=== PATIENT | male | born 1945 | race Two or more races ===

== ENCOUNTER 2020-05-31 00:28 | Inpatient (IN) | payer MEDICARE, OTHER ==
[~2020-05-31] VITALS: Ht 188 cm; Wt 93.4 kg
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
--- NOTE | 2020-05-31 00:55 | NUR ---
urine collected and sent to the lab.
[2020-05-31 01:05] LABS: BILIRUBIN,URINE NEGATIVE (NEGATIVE); COLOR,URINE YELLOW (YELLOW); LEUKOCYTE ESTERASE ,URINE NEGATIVE (NEGATIVE); NITRITE, URINE NEGATIVE (NEGATIVE); PH,URINE 5.5 (5.0-8.0); PROTEIN,URINE NEGATIVE (NEGATIVE); UGLUCOSE NEGATIVE (NEGATIVE); UROBILINOGEN,URINE 0.2 EU/dL (0.2)
--- NOTE | 2020-05-31 01:11 | NUR ---
214-B IS THE ROOM PER NURSING SUPEVISOR.
[2020-05-31 01:12] LABS: BASOPHILS # (AUTO) 0.1 /CMM (0.0-0.2); BASOPHILS % (AUTO) 1.2 % (0.0-2.0); EOSINOPHILS % (AUTO) 1.1 % (0.0-6.0); HEMATOCRIT 42 % (39-51); HEMOGLOBIN 14.5 g/dL (13.5-17.5); LYMPHOCYTES # (AUTO) 2.3 /CMM (0.8-4.8); LYMPHOCYTES % (AUTO) 20.9 % (20.0-44.0); MEAN CORPUSCULAR HGB CONC 34 g/dl (31.0-36.0); MEAN CORPUSCULAR VOLUME 89 fL (80-96); MONOCYTES # (AUTO) 0.8 /CMM (0.1-1.30); MONOCYTES % (AUTO) 7.6 % (2.0-12.0); NEUTROPHILS # (AUTO) 7.5 /CMM (1.8-8.9); NEUTROPHILS % (AUTO) 69.2 % (43.0-81.0); PLATELET COUNT (AUTO) 193 /CMM (150-450); RED BLOOD CELL COUNT(AUTO) 4.77 MIL/uL (4.5-6.0); WHITE BLOOD COUNT (AUTO) 10.9 K/uL (4.3-11.0)
[2020-05-31 01:28] LABS: CALCIUM, SERUM 9.1 mg/dL (8.5-10.1); CARBON DIOXIDE 28 mmol/L (21-32); CHLORIDE 101 mmol/L (98-107); CREATININE 0.7 mg/dL (0.6-1.3); GLUCOSE 134 mg/dL (74-106); POTASSIUM 4.1 mmol/L (3.5-5.1); SODIUM SERUM 136 mmol/L (136-145); UREA NITROGEN, BLOOD 15 mg/dL (7-18)
--- NOTE | 2020-05-31 01:34 | NUR ---
CALL FROM LAB. RAPID COVID NEGATIVE.
[2020-05-31 01:35] LABS: ALANINE AMINOTRANSFERASE 24 U/L (12-78); ALCOHOL, BLOOD < 3 mg/dL (0-0); ALKALINE PHOSPHATASE 77 U/L (46-116); ASPARTATE AMINOTRANSFERASE 14 U/L (15-37); BILIRUBIN,DIRECT 0.1 mg/dL (0.0-0.2); BILIRUBIN,TOTAL 0.3 mg/dL (0.2-1.0); TOTAL PROTEIN, SERUM 7.6 g/dL (6.4-8.2)
[2020-05-31 01:39] LABS: ACETAMINOPHEN 0 ug/ml (10-30)
--- NOTE | 2020-05-31 01:49 | NUR ---
REPORT GIVEN TO CARINA CUNNINGHAM FOR HELEN.
--- NOTE | 2020-05-31 02:08 | NUR ---
patient is taken to assigned room for HELEN
[2020-05-31] MEDS ORDERED: ACETAMINOPHEN 325 MG TABLET PO PRN (02:30)
[2020-05-31] MEDS ORDERED: LORAZEPAM 0.5 MG TABLET PO PRN (02:30)
[2020-05-31] MEDS ORDERED: BLOOD SUGAR DIAGNOSTIC 1 EACH STRIP IN ONE (02:30)
[2020-05-31] MEDS ORDERED: MAGNESIUM HYDROXIDE 30 ML UDC PO PRN (02:30)
[2020-05-31] MEDS ORDERED: MAG HYDROX/AL HYDROX/SIMETH 30 ML UDC PO PRN (02:30)
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
--- NOTE | 2020-05-31 02:59 | NUR ---
RN NOTE PATIENT'S BLOOD SUGAR IS 93 MG/DL. ORANGE JUICE GIVEN & TOLERATED WELL. WILL CONTINUE TO MONITOR THE PATIENT.
[2020-05-31] MEDS ORDERED: Z GUARD REMEDY 4 OZ OINT TP PRN (04:30)
[2020-05-31] MEDS ORDERED: DOCU-141 PO (04:40)
[2020-05-31] MEDS ORDERED: FOLI1CAP7 PO (04:40)
[2020-05-31] MEDS ORDERED: CYAN250014 PO (04:40)
[2020-05-31] MEDS ORDERED: ATOR40TA PO (04:40)
[2020-05-31] MEDS ORDERED: LISI10TA29 PO (04:40)
[2020-05-31] MEDS ORDERED: GABA600T12 PO (04:40)
[2020-05-31] MEDS ORDERED: MELA3TAB41 PO (04:40)
[2020-05-31] MEDS ORDERED: DILT180C66 PO (04:40)
[2020-05-31] MEDS ORDERED: RIVA10TA PO (04:40)
[2020-05-31] MEDS ORDERED: ATEN50TA PO (04:40)
[2020-05-31] MEDS ORDERED: INSU100V7 SQ (04:40)
[2020-05-31] MEDS ORDERED: TAMS-12 PO (04:40)
[2020-05-31] MEDS ORDERED: FAMO20TA8 PO (04:40)
[2020-05-31] MEDS ORDERED: INSU100C10 SQ (04:40)
[2020-05-31] MEDS ORDERED: MULT-447 PO (04:40)
[2020-05-31] MEDS ORDERED: QUET50TA PO (04:40)
--- NOTE | 2020-05-31 05:38 | NUR ---
RN NOTE MEDS ENTERED TO RECONCILE & TAMIKO NOTIFIED TO DO MED RECON.
[2020-05-31] MEDS ORDERED: DEXTROSE 50%-WATER 50 ML DISP.SYRIN IV PRN (06:30)
--- NOTE | 2020-05-31 07:15 | NUR ---
RN NOTE MED RECON DONE, INFORMED AM RN & CHARGE NURSE TO NOTIFY FAMILY REGARDING ADMISSION.
[2020-05-31] MEDS: BLOOD SUGAR DIAGNOSTIC 1 EACH STRIP IN SCH ×4 (07:27→22:01)
[2020-05-31 07:44] LABS: CREATININE 0.9 mg/dL (0.6-1.3)
[2020-05-31 08:00] VITALS: BP 152/78
--- NOTE | 2020-05-31 08:00 | NUR ---
GPS WORKFORCE MANAGEMENT ANALYST: NOTES LEFT MESSAGE TO NOREEN (PUBLIC GUARDIAN) VIA ANSWERING MACHINE RE: ADMISSION.
[2020-05-31] MEDS: DILTIAZEM HCL CD 180 MG PO SCH (08:50)
[2020-05-31] MEDS: ATENOLOL 50 MG TABLET PO SCH ×2 (08:50→16:38)
[2020-05-31] MEDS: MULTIVITAMINS,THERAGRAN 1 UDTAB TABLET PO SCH (08:51)
[2020-05-31] MEDS: Z GUARD REMEDY 2 OZ OINT TP SCH (08:51)
[2020-05-31] MEDS: VIT B CMPLX 3/FA/VIT C/BIOTIN 1 TAB TABLET PO SCH (08:51)
[2020-05-31] MEDS: CYANOCOBALAMIN 500 MCG TABLET PO SCH (08:51)
[2020-05-31] MEDS: LISINOPRIL (10MG) 10 MG TABLET PO SCH (08:51)
[2020-05-31] MEDS: FAMOTIDINE (20 MG) 20 MG TABLET PO SCH ×2 (08:51→17:03)
[2020-05-31] MEDS: DOCUSATE SODIUM 100 MG CAPSULE PO SCH ×2 (08:51→17:03)
[2020-05-31] MEDS: INSULIN REGULAR, HUMAN 100 UNIT/ML 3 ML VIAL SQ PRN ×2 (11:23→17:04)
[2020-05-31] MEDS: OLANZAPINE 2.5 MG TABLET PO SCH ×2 (13:15→17:03)
[2020-05-31 16:00] VITALS: BP 92/53
[2020-05-31] MEDS: ATORVASTATIN 40 MG TABLET PO SCH (17:10)
[2020-05-31 20:13] VITALS: BP 100/61
[2020-05-31] MEDS ORDERED: GABAPENTIN 300 MG CAPSULE PO SCH (22:00)
[2020-05-31] MEDS: INSULIN GLARGINE, 100 UNIT/ML CARTRIDGE SQ SCH (22:00)
[2020-05-31] MEDS: RIVAROXABAN 10 MG TABLET PO SCH (22:01)
[2020-05-31] MEDS: DIVALPROEX SODIUM 250 MG TABLET.DR PO SCH (22:02)
[2020-05-31] MEDS: TAMSULOSIN 0.4 MG CAP.SR.24H PO SCH (22:02)
--- NOTE | 2020-05-31 22:15 | NUR ---
gpa rn did not administer lantus 20 units d/t patient blood sugar is 97. will continue to monitor.
[2020-06-01 07:20] LABS: ALBUMIN 2.9 g/dL (3.4-5.0); BILIRUBIN,TOTAL 0.4 mg/dL (0.2-1.0); CALCIUM, SERUM 8.8 mg/dL (8.5-10.1); CREATININE 0.7 mg/dL (0.6-1.3); POTASSIUM 3.8 mmol/L (3.5-5.1); TOTAL PROTEIN, SERUM 7.2 g/dL (6.4-8.2)
[2020-06-01] MEDS: BLOOD SUGAR DIAGNOSTIC 1 EACH STRIP IN SCH ×4 (07:59→22:26)
[2020-06-01 08:00] VITALS: BP 121/55
[2020-06-01] MEDS: DILTIAZEM HCL CD 180 MG PO SCH (09:26)
[2020-06-01] MEDS: MULTIVITAMINS,THERAGRAN 1 UDTAB TABLET PO SCH (09:27)
[2020-06-01] MEDS: OLANZAPINE 2.5 MG TABLET PO SCH ×3 (09:27→18:29)
[2020-06-01] MEDS: CYANOCOBALAMIN 500 MCG TABLET PO SCH (09:27)
[2020-06-01] MEDS: DOCUSATE SODIUM 100 MG CAPSULE PO SCH ×2 (09:27→18:29)
[2020-06-01] MEDS: VIT B CMPLX 3/FA/VIT C/BIOTIN 1 TAB TABLET PO SCH (09:27)
[2020-06-01] MEDS: FAMOTIDINE (20 MG) 20 MG TABLET PO SCH ×2 (09:27→18:29)
[2020-06-01] MEDS: Z GUARD REMEDY 2 OZ OINT TP SCH (09:47)
--- NOTE | 2020-06-01 09:51 | NUR ---
WOUND CARE CONSULT: PT PRESENTS WITH SCABS TO LOWER LEGS AND FEET, ANKLES, PRESENT ON ADMISSION. RECOMMEND DPM CONSULT. DR RODRIGUEZ NOTIFIED OF CONSULT REQUEST. MD IN AGREEMENT WITH PLAN OF CARE.
[2020-06-01] MEDS: LISINOPRIL (10MG) 10 MG TABLET PO SCH (10:04)
[2020-06-01] MEDS: ATENOLOL 50 MG TABLET PO SCH ×2 (10:04→17:00)
[2020-06-01] MEDS ORDERED: PERMETHRIN 59 ML BOTTLE TP ONE (11:00)
[2020-06-01] MEDS ORDERED: PERMETHRIN 5% CRM 60 GM TUBE TP ONE (11:00)
[2020-06-01] MEDS: INSULIN REGULAR, HUMAN 100 UNIT/ML 3 ML VIAL SQ PRN (12:42)
[2020-06-01 16:00] VITALS: BP 105/62
[2020-06-01] MEDS: ENSURE ENLIVE CHOC 237 ML CAN PO SCH (17:34)
--- NOTE | 2020-06-01 18:00 | NUR ---
ELIMITE AND NIX TX GIVEN.WD NURSE HERE EARLY AND SUSPICIOUS OF SCABIES.Irina JEONG NOTIFIED AND MED ORDERS PUT IN FOR SKIN TX.TO BE REMOVED TOMORROW.
[2020-06-01] MEDS: CLOTRIMAZOLE 1% 15 GM TUBE TP SCH (18:30)
[2020-06-01] MEDS: ATORVASTATIN 40 MG TABLET PO SCH (18:30)
[2020-06-01 20:46] VITALS: BP 108/61
[2020-06-01] MEDS: TAMSULOSIN 0.4 MG CAP.SR.24H PO SCH (21:47)
[2020-06-01] MEDS: DIVALPROEX SODIUM 250 MG TABLET.DR PO SCH (21:47)
[2020-06-01] MEDS: RIVAROXABAN 10 MG TABLET PO SCH (21:49)
[2020-06-01] MEDS: INSULIN GLARGINE, 100 UNIT/ML CARTRIDGE SQ SCH (22:00)
[2020-06-02] MEDS: BLOOD SUGAR DIAGNOSTIC 1 EACH STRIP IN SCH ×4 (07:37→21:28)
[2020-06-02 08:00] VITALS: BP 101/50
[2020-06-02] MEDS: MULTIVITAMINS,THERAGRAN 1 UDTAB TABLET PO SCH (08:23)
[2020-06-02] MEDS: FAMOTIDINE (20 MG) 20 MG TABLET PO SCH ×2 (08:23→16:26)
[2020-06-02] MEDS: VIT B CMPLX 3/FA/VIT C/BIOTIN 1 TAB TABLET PO SCH (08:24)
[2020-06-02] MEDS: DOCUSATE SODIUM 100 MG CAPSULE PO SCH ×2 (08:24→16:26)
[2020-06-02] MEDS: CYANOCOBALAMIN 500 MCG TABLET PO SCH (08:24)
[2020-06-02] MEDS: DILTIAZEM HCL CD 180 MG PO SCH ×2 (08:24→08:42)
[2020-06-02] MEDS: OLANZAPINE 2.5 MG TABLET PO SCH ×3 (08:24→16:26)
[2020-06-02] MEDS: ATENOLOL 50 MG TABLET PO SCH ×3 (08:25→16:27)
[2020-06-02] MEDS: LISINOPRIL (10MG) 10 MG TABLET PO SCH ×2 (08:25→08:43)
[2020-06-02] MEDS: ENSURE ENLIVE CHOC 237 ML CAN PO SCH ×2 (08:34→17:19)
[2020-06-02] MEDS: CLOTRIMAZOLE 1% 15 GM TUBE TP SCH ×2 (10:16→16:36)
[2020-06-02] MEDS: Z GUARD REMEDY 2 OZ OINT TP SCH (10:17)
--- NOTE | 2020-06-02 13:30 | NUR ---
Keyur MELVIN) in the unit and notified that BP meds not given due low BP.
[2020-06-02 16:00] VITALS: BP 116/66
[2020-06-02] MEDS: ATORVASTATIN 40 MG TABLET PO SCH (17:29)
[2020-06-02 20:06] VITALS: BP 121/66
[2020-06-02] MEDS: TAMSULOSIN 0.4 MG CAP.SR.24H PO SCH (21:19)
[2020-06-02] MEDS: DIVALPROEX SODIUM 250 MG TABLET.DR PO SCH (21:20)
[2020-06-02] MEDS: RIVAROXABAN 10 MG TABLET PO SCH (21:32)
[2020-06-02] MEDS: INSULIN GLARGINE, 100 UNIT/ML CARTRIDGE SQ SCH (21:33)
[2020-06-02] MEDS: INSULIN REGULAR, HUMAN 100 UNIT/ML 3 ML VIAL SQ PRN (21:42)
[2020-06-03 08:00] VITALS: BP 112/56
[2020-06-03] MEDS: BLOOD SUGAR DIAGNOSTIC 1 EACH STRIP IN SCH ×4 (08:26→21:16)
[2020-06-03] MEDS: MULTIVITAMINS,THERAGRAN 1 UDTAB TABLET PO SCH (08:27)
[2020-06-03] MEDS: CYANOCOBALAMIN 500 MCG TABLET PO SCH (08:27)
[2020-06-03] MEDS: DOCUSATE SODIUM 100 MG CAPSULE PO SCH ×2 (08:27→17:18)
[2020-06-03] MEDS: VIT B CMPLX 3/FA/VIT C/BIOTIN 1 TAB TABLET PO SCH (08:27)
[2020-06-03] MEDS: FAMOTIDINE (20 MG) 20 MG TABLET PO SCH ×2 (08:27→16:34)
[2020-06-03] MEDS: OLANZAPINE 2.5 MG TABLET PO SCH ×3 (08:27→16:34)
[2020-06-03] MEDS: Z GUARD REMEDY 2 OZ OINT TP SCH (08:29)
[2020-06-03] MEDS: LISINOPRIL (10MG) 10 MG TABLET PO SCH (08:29)
[2020-06-03] MEDS: ATENOLOL 50 MG TABLET PO SCH ×2 (08:29→16:35)
[2020-06-03] MEDS: ENSURE ENLIVE CHOC 237 ML CAN PO SCH ×2 (08:35→17:15)
[2020-06-03] MEDS: DILTIAZEM HCL CD 180 MG PO SCH (08:37)
[2020-06-03] MEDS: CLOTRIMAZOLE 1% 15 GM TUBE TP SCH ×2 (08:39→16:40)
--- NOTE | 2020-06-03 11:10 | NUR ---
Phone Call: SW attempted to call next of kin (Public Guardian-Symone Dueañsmanny [phone] and [phone]) via phone regarding the pt and discharge planning. SW left a voice message to return phone call at rn social work office ([phone]). Plan: Farm Management Supervisor will follow up as needed.
--- NOTE | 2020-06-03 11:15 | NUR ---
Phone Call: SW spoke to Water Plant Maintenance Mechanic (Gzkavgw-[phone], [facility], [address] [place] [address],) regarding the pt and discharge planning. The windchill administrator would take the pt back but suggest to find another placement if possible.
[2020-06-03 12:12] LABS: BASOPHILS # (AUTO) 0.1 /CMM (0.0-0.2); BASOPHILS % (AUTO) 0.7 % (0.0-2.0); EOSINOPHILS % (AUTO) 1.1 % (0.0-6.0); HEMATOCRIT 45 % (39-51); HEMOGLOBIN 15.1 g/dL (13.5-17.5); LYMPHOCYTES # (AUTO) 2.1 /CMM (0.8-4.8); MEAN CORPUSCULAR HGB CONC 34 g/dl (31.0-36.0); MEAN CORPUSCULAR VOLUME 89 fL (80-96); MONOCYTES # (AUTO) 0.8 /CMM (0.1-1.30); NEUTROPHILS % (AUTO) 69.2 % (43.0-81.0); PLATELET COUNT (AUTO) 197 /CMM (150-450); RED BLOOD CELL COUNT(AUTO) 5.02 MIL/uL (4.5-6.0)
[2020-06-03 12:20] LABS: CALCIUM, SERUM 9.4 mg/dL (8.5-10.1); CREATININE 0.7 mg/dL (0.6-1.3); POTASSIUM 4.4 mmol/L (3.5-5.1)
[2020-06-03 12:27] LABS: ALBUMIN 3.1 g/dL (3.4-5.0); BILIRUBIN,TOTAL 0.4 mg/dL (0.2-1.0); TOTAL PROTEIN, SERUM 7.7 g/dL (6.4-8.2)
--- NOTE | 2020-06-03 12:31 | NUR ---
Initial Discharge Plan: Pt currently resides at [facility], [address] [place] [address] .) The facility has agreed to accept the pt back to the facility. SW will discharge back to current living. JOSIE will work with the pt, guardian (Symone Hammer- [phone]), and MD for appropriate discharged planning. SW will form a safe and proper discharge plan.
[2020-06-03 16:00] VITALS: BP 123/81
[2020-06-03] MEDS: ATORVASTATIN 40 MG TABLET PO SCH (17:15)
[2020-06-03 20:21] VITALS: BP 139/78
[2020-06-03] MEDS: RIVAROXABAN 10 MG TABLET PO SCH (21:17)
[2020-06-03] MEDS: TAMSULOSIN 0.4 MG CAP.SR.24H PO SCH (21:17)
[2020-06-03] MEDS: INSULIN REGULAR, HUMAN 100 UNIT/ML 3 ML VIAL SQ PRN (21:18)
[2020-06-03] MEDS: INSULIN GLARGINE, 100 UNIT/ML CARTRIDGE SQ SCH (21:19)
[2020-06-03] MEDS: DIVALPROEX SODIUM 250 MG TABLET.DR PO SCH (21:21)
[2020-06-04] MEDS: BLOOD SUGAR DIAGNOSTIC 1 EACH STRIP IN SCH ×4 (07:59→21:17)
[2020-06-04] MEDS: ENSURE ENLIVE CHOC 237 ML CAN PO SCH ×2 (07:59→17:27)
[2020-06-04 08:00] VITALS: BP 125/72
[2020-06-04] MEDS: DILTIAZEM HCL CD 180 MG PO SCH (09:17)
[2020-06-04] MEDS: MULTIVITAMINS,THERAGRAN 1 UDTAB TABLET PO SCH (09:17)
[2020-06-04] MEDS: OLANZAPINE 2.5 MG TABLET PO SCH ×3 (09:18→16:36)
[2020-06-04] MEDS: FAMOTIDINE (20 MG) 20 MG TABLET PO SCH ×2 (09:18→16:37)
[2020-06-04] MEDS: VIT B CMPLX 3/FA/VIT C/BIOTIN 1 TAB TABLET PO SCH (09:18)
[2020-06-04] MEDS: LISINOPRIL (10MG) 10 MG TABLET PO SCH (09:18)
[2020-06-04] MEDS: DOCUSATE SODIUM 100 MG CAPSULE PO SCH ×2 (09:18→16:36)
[2020-06-04] MEDS: ATENOLOL 50 MG TABLET PO SCH ×2 (09:18→16:36)
[2020-06-04] MEDS: CYANOCOBALAMIN 500 MCG TABLET PO SCH (09:18)
[2020-06-04] MEDS: CLOTRIMAZOLE 1% 15 GM TUBE TP SCH ×2 (09:50→16:40)
[2020-06-04] MEDS: Z GUARD REMEDY 2 OZ OINT TP SCH (09:51)
[2020-06-04] MEDS: INSULIN REGULAR, HUMAN 100 UNIT/ML 3 ML VIAL SQ PRN ×2 (11:58→17:30)
[2020-06-04 16:00] VITALS: BP 116/65
[2020-06-04] MEDS: ATORVASTATIN 40 MG TABLET PO SCH (17:24)
[2020-06-04 20:05] VITALS: BP 112/82
[2020-06-04] MEDS: TAMSULOSIN 0.4 MG CAP.SR.24H PO SCH (21:17)
[2020-06-04] MEDS: DIVALPROEX SODIUM 250 MG TABLET.DR PO SCH (21:17)
[2020-06-04] MEDS: RIVAROXABAN 10 MG TABLET PO SCH (21:20)
[2020-06-04] MEDS: INSULIN GLARGINE, 100 UNIT/ML CARTRIDGE SQ SCH (21:38)
[2020-06-05] MEDS: BLOOD SUGAR DIAGNOSTIC 1 EACH STRIP IN SCH ×4 (07:30→22:14)
--- NOTE | 2020-06-05 07:48 | NUR ---
RN NOTES PATIENT REFUSED ACCU CHECK PULLING HANDS AWAY
[2020-06-05 08:00] VITALS: BP 110/57
[2020-06-05] MEDS: ENSURE ENLIVE CHOC 237 ML CAN PO SCH ×2 (08:55→17:18)
[2020-06-05] MEDS: FAMOTIDINE (20 MG) 20 MG TABLET PO SCH ×2 (09:08→17:10)
[2020-06-05] MEDS: DOCUSATE SODIUM 100 MG CAPSULE PO SCH ×2 (09:08→17:10)
[2020-06-05] MEDS: DILTIAZEM HCL CD 180 MG PO SCH (09:08)
[2020-06-05] MEDS: CYANOCOBALAMIN 500 MCG TABLET PO SCH (09:08)
[2020-06-05] MEDS: MULTIVITAMINS,THERAGRAN 1 UDTAB TABLET PO SCH (09:08)
[2020-06-05] MEDS: OLANZAPINE 2.5 MG TABLET PO SCH ×3 (09:09→17:16)
[2020-06-05] MEDS: LISINOPRIL (10MG) 10 MG TABLET PO SCH (09:09)
[2020-06-05] MEDS: VIT B CMPLX 3/FA/VIT C/BIOTIN 1 TAB TABLET PO SCH (09:09)
[2020-06-05] MEDS: ATENOLOL 50 MG TABLET PO SCH ×2 (09:09→17:00)
[2020-06-05] MEDS: CLOTRIMAZOLE 1% 15 GM TUBE TP SCH ×2 (09:10→17:18)
[2020-06-05] MEDS: Z GUARD REMEDY 2 OZ OINT TP SCH (09:10)
[2020-06-05 16:00] VITALS: BP 104/52
[2020-06-05] MEDS: ATORVASTATIN 40 MG TABLET PO SCH (17:10)
[2020-06-05] MEDS: INSULIN REGULAR, HUMAN 100 UNIT/ML 3 ML VIAL SQ PRN ×2 (17:20→22:17)
[2020-06-05 20:53] VITALS: BP 112/55
[2020-06-05] MEDS: TAMSULOSIN 0.4 MG CAP.SR.24H PO SCH (22:06)
[2020-06-05] MEDS: DIVALPROEX SODIUM 250 MG TABLET.DR PO SCH (22:06)
[2020-06-05] MEDS: RIVAROXABAN 10 MG TABLET PO SCH (22:07)
[2020-06-05] MEDS: INSULIN GLARGINE, 100 UNIT/ML CARTRIDGE SQ SCH (22:11)
[2020-06-06] MEDS: TEMAZEPAM 7.5 MG CAPSULE PO PRN ×2 (03:38→23:40)
--- NOTE | 2020-06-06 03:39 | NUR ---
Pt c/o insomnia. Least restrictive measures ineffective.. Restoril 7.5 mg given as ordered. Will continue to monitor.
--- NOTE | 2020-06-06 04:45 | NUR ---
Post 1 hr Restoril effective. Pt asleep in bed easy to arouse. Will continue to monitor.
--- NOTE | 2020-06-06 07:10 | NUR ---
GPS RN OPENING NOTES RECEIVED PATIENT RESTING COMFORTABLE IN BED AT THIS TIME.AOX1-2. NO SOB NOTED. NO S/S OF ANY APPARENT DISTRESS NOTED.BREATHING UNLABORED. PT DENIES SI/HI. PT REMAINS CALM, RELAXED AND COOPERATIVE. BED IN LOWEST LOCKED POSITION, HOB ELEVATED, SIDE RAILS UPX2, CALL LIGHT AND TABLE WITHIN REACH. WILL CONTINUE TO MONITOR Q 15 MIN FOR SAFETY, MOOD & BEHAVIOR
[2020-06-06 08:00] VITALS: BP 121/62
--- NOTE | 2020-06-06 08:00 | NUR ---
PT NOTED ON THE FLOOR RIGHT AFTER BED ALARM STARTS RINGING. PT ASSESSED, NEURO CHECK DONE, PT ALERT ORIENTED, SKIN INTACT, VS WNL. PT STATED "I TRIED GETTING OUT OF BED AND FELL ON MY BOTTUCK". NGUYEN INGRAM MADE AWARE, XR PELVIS, XR LEFT AND RIGHT HIP ORDERED. WILL CONTINUE TO MONITOR Addendum: 06/06/20 at 1133 by ROZ BLUM RN PT NOTED ON THE FLOOR RIGHT AFTER BED ALARM STARTS RINGING. PT ASSESSED, NEURO CHECK DONE, PT ALERT ORIENTED, SKIN INTACT, VS WNL. PT STATED "I TRIED GETTING OUT OF BED AND FELL ON MY BUTTOCK". NGUYEN INGRAM MADE AWARE, BRITTA, CHARGE NURSE, DR LUEVANO AND NURSING CORK INSULATOR HELPER AWARE. XR PELVIS, XR LEFT AND RIGHT HIP ORDERED. WILL CONTINUE TO MONITOR
[2020-06-06] MEDS: BLOOD SUGAR DIAGNOSTIC 1 EACH STRIP IN SCH ×4 (08:03→21:41)
[2020-06-06] MEDS: ENSURE ENLIVE CHOC 237 ML CAN PO SCH ×2 (08:03→17:12)
[2020-06-06] MEDS: CLOTRIMAZOLE 1% 15 GM TUBE TP SCH ×2 (09:00→17:33)
[2020-06-06] MEDS: Z GUARD REMEDY 2 OZ OINT TP SCH (09:48)
[2020-06-06] MEDS: VIT B CMPLX 3/FA/VIT C/BIOTIN 1 TAB TABLET PO SCH (09:48)
[2020-06-06] MEDS: DOCUSATE SODIUM 100 MG CAPSULE PO SCH ×2 (09:48→17:33)
[2020-06-06] MEDS: DILTIAZEM HCL CD 180 MG PO SCH (09:48)
[2020-06-06] MEDS: FAMOTIDINE (20 MG) 20 MG TABLET PO SCH ×2 (09:48→17:33)
[2020-06-06] MEDS: MULTIVITAMINS,THERAGRAN 1 UDTAB TABLET PO SCH (09:49)
[2020-06-06] MEDS: LISINOPRIL (10MG) 10 MG TABLET PO SCH (09:49)
[2020-06-06] MEDS: CYANOCOBALAMIN 500 MCG TABLET PO SCH (09:49)
[2020-06-06] MEDS: ATENOLOL 50 MG TABLET PO SCH ×2 (09:50→17:32)
[2020-06-06] MEDS: OLANZAPINE 2.5 MG TABLET PO SCH ×4 (09:50→21:41)
[2020-06-06] MEDS: INSULIN REGULAR, HUMAN 100 UNIT/ML 3 ML VIAL SQ PRN ×3 (09:57→17:24)
[2020-06-06 11:12] LABS: BASOPHILS # (AUTO) 0.1 /CMM (0.0-0.2); BASOPHILS % (AUTO) 0.4 % (0.0-2.0); EOSINOPHILS % (AUTO) 0.6 % (0.0-6.0); HEMATOCRIT 43 % (39-51); HEMOGLOBIN 14.4 g/dL (13.5-17.5); LYMPHOCYTES # (AUTO) 2.1 /CMM (0.8-4.8); LYMPHOCYTES % (AUTO) 15.2 % (20.0-44.0); MEAN CORPUSCULAR HGB CONC 34 g/dl (31.0-36.0); MEAN CORPUSCULAR VOLUME 89 fL (80-96); MONOCYTES % (AUTO) 7.6 % (2.0-12.0); NEUTROPHILS # (AUTO) 10.3 /CMM (1.8-8.9); NEUTROPHILS % (AUTO) 76.2 % (43.0-81.0); PLATELET COUNT (AUTO) 190 /CMM (150-450); RED BLOOD CELL COUNT(AUTO) 4.81 MIL/uL (4.5-6.0); WHITE BLOOD COUNT (AUTO) 13.5 K/uL (4.3-11.0)
[2020-06-06 11:24] LABS: ALBUMIN 3.1 g/dL (3.4-5.0); BILIRUBIN,TOTAL 0.3 mg/dL (0.2-1.0); CREATININE 0.8 mg/dL (0.6-1.3); MAGNESIUM 1.9 mg/dL (1.8-2.4); TOTAL PROTEIN, SERUM 7.7 g/dL (6.4-8.2)
--- NOTE | 2020-06-06 12:01 | NUR ---
Probable Cause Hearing: Pts 5250 hold was upheld for grave disability and danger to others.
--- NOTE | 2020-06-06 12:11 | NUR ---
GPS RN NOTE: PATIENT WAS MOVED TO ROOM 212 A CLOSER TO NURSING STATION FOR SAFETY, FALL PREVENTION.
--- NOTE | 2020-06-06 13:53 | NUR ---
Public Guardian Contact: Symone ([phone]) from [place] Public [facility] called the SW and left a voicemail and SW called back and left another voicemail in an attempt to make contact.
--- NOTE | 2020-06-06 15:45 | NUR ---
Public Guardian Contact: Symone ([phone]) from [place] [facility] called the SW and inquired about the pts discharge plan. SW stated that the pt came from [facility] and that they are requesting an alternate placement and if no placement can be secured then the facility will accept him back. Symone stated that the pt has been moved around far too many times and stated that she would like the pt to return to [facility].
[2020-06-06] MEDS: ATORVASTATIN 40 MG TABLET PO SCH (17:33)
--- NOTE | 2020-06-06 18:54 | NUR ---
GPS RN CLOSING NOTES PT IN DINNING ROOM WATCHING TV AT THIS TIME. PT REMAINED STABLE THROUGH OUT SHIFT. ALL CARE, NEEDS, MEDICATIONS AND TREATMENT ADMINISTERED ANTICIPATED PER ORDER. PT KEPT CLEAN AND DRY. WILL ENDORSE TO VICE PRESIDENT OF INSTRUCTION NURSE TO CONTINUE TO MONITOR Q 15 MIN FOR SAFETY, MOOD & BEHAVIOR
[2020-06-06 21:27] VITALS: BP 93/43
[2020-06-06] MEDS: TAMSULOSIN 0.4 MG CAP.SR.24H PO SCH (21:41)
[2020-06-06] MEDS: DIVALPROEX SODIUM 250 MG TABLET.DR PO SCH (21:41)
[2020-06-06] MEDS: RIVAROXABAN 10 MG TABLET PO SCH (21:48)
[2020-06-06 21:49] VITALS: BP 112/62
[2020-06-06] MEDS: INSULIN GLARGINE, 100 UNIT/ML CARTRIDGE SQ SCH (21:59)
[2020-06-06] MEDS ORDERED: OLANZAPINE 10 MG TABLET PO SCH (22:00)
--- NOTE | 2020-06-06 23:40 | NUR ---
GPS-RN NOTES: INSOMNIA PATIENT UNABLE TO SLEEP. ADMINISTERED RESTORIL 7.5MG PO ORDERED. WILL CONTINUE TO MONITOR FOR PT'S SAFETY.
[2020-06-07 07:04] LABS: BASOPHILS # (AUTO) 0.1 /CMM (0.0-0.2); BASOPHILS % (AUTO) 0.5 % (0.0-2.0); EOSINOPHILS % (AUTO) 0.7 % (0.0-6.0); HEMATOCRIT 42 % (39-51); HEMOGLOBIN 14.3 g/dL (13.5-17.5); LYMPHOCYTES # (AUTO) 2.3 /CMM (0.8-4.8); LYMPHOCYTES % (AUTO) 17.4 % (20.0-44.0); MEAN CORPUSCULAR HGB CONC 34 g/dl (31.0-36.0); MEAN CORPUSCULAR VOLUME 89 fL (80-96); MONOCYTES # (AUTO) 1.1 /CMM (0.1-1.30); MONOCYTES % (AUTO) 8.1 % (2.0-12.0); NEUTROPHILS # (AUTO) 9.8 /CMM (1.8-8.9); NEUTROPHILS % (AUTO) 73.3 % (43.0-81.0); PLATELET COUNT (AUTO) 227 /CMM (150-450); RED BLOOD CELL COUNT(AUTO) 4.75 MIL/uL (4.5-6.0); WHITE BLOOD COUNT (AUTO) 13.3 K/uL (4.3-11.0)
[2020-06-07] MEDS: BLOOD SUGAR DIAGNOSTIC 1 EACH STRIP IN SCH ×4 (07:23→21:58)
[2020-06-07] MEDS: INSULIN REGULAR, HUMAN 100 UNIT/ML 3 ML VIAL SQ PRN ×4 (07:27→22:09)
[2020-06-07 07:41] LABS: ALBUMIN 3.3 g/dL (3.4-5.0); BILIRUBIN,TOTAL 0.5 mg/dL (0.2-1.0); CALCIUM, SERUM 9.4 mg/dL (8.5-10.1); CREATININE 1.1 mg/dL (0.6-1.3); POTASSIUM 4.6 mmol/L (3.5-5.1); TOTAL PROTEIN, SERUM 8.1 g/dL (6.4-8.2)
[2020-06-07 08:00] VITALS: BP 130/79
[2020-06-07] MEDS: ENSURE ENLIVE CHOC 237 ML CAN PO SCH ×2 (08:37→16:57)
[2020-06-07] MEDS: VIT B CMPLX 3/FA/VIT C/BIOTIN 1 TAB TABLET PO SCH (08:38)
[2020-06-07] MEDS: LISINOPRIL (10MG) 10 MG TABLET PO SCH (08:38)
[2020-06-07] MEDS: OLANZAPINE 2.5 MG TABLET PO SCH ×5 (08:38→22:22)
[2020-06-07] MEDS: FAMOTIDINE (20 MG) 20 MG TABLET PO SCH ×3 (08:39→17:00)
[2020-06-07] MEDS: CYANOCOBALAMIN 500 MCG TABLET PO SCH (08:39)
[2020-06-07] MEDS: MULTIVITAMINS,THERAGRAN 1 UDTAB TABLET PO SCH (08:39)
[2020-06-07] MEDS: DOCUSATE SODIUM 100 MG CAPSULE PO SCH ×3 (08:39→17:00)
[2020-06-07] MEDS: DILTIAZEM HCL CD 180 MG PO SCH (08:39)
[2020-06-07] MEDS: ATENOLOL 50 MG TABLET PO SCH ×3 (08:43→17:00)
[2020-06-07] MEDS: Z GUARD REMEDY 2 OZ OINT TP SCH (09:19)
[2020-06-07] MEDS: CLOTRIMAZOLE 1% 15 GM TUBE TP SCH ×2 (09:20→16:49)
--- NOTE | 2020-06-07 09:44 | NUR ---
GPS RN NOTE: DR LUEVANO T.O. ORDER UA STRAIGHT CATH ORDER PLACED AND CARED OUT WILL CONTINUE MONITORING
--- NOTE | 2020-06-07 09:57 | NUR ---
RN NOTE: STRAIGHT CATH USING ASEPTIC TECHNIQUE. PT TOLERATED WELL. URINE SENT TO LAB.
[2020-06-07 11:21] LABS: BILIRUBIN,URINE NEGATIVE (NEGATIVE); COLOR,URINE DARK YELLOW (YELLOW); LEUKOCYTE ESTERASE ,URINE NEGATIVE (NEGATIVE); NITRITE, URINE NEGATIVE (NEGATIVE); PH,URINE 5.5 (5.0-8.0); PROTEIN,URINE NEGATIVE (NEGATIVE); UGLUCOSE NEGATIVE (NEGATIVE); UROBILINOGEN,URINE 0.2 EU/dL (0.2)
[2020-06-07 11:31] LABS: RBC,URINE 0-2 /HPF (0-2); WBC,URINE 0-2 /HPF (0-3)
[2020-06-07 11:33] LABS: BACTERIA,URINE Few /HPF (None Seen); SQUAMOUS EPITHELIAL CELL,UR Few /HPF (None Seen)
--- NOTE | 2020-06-07 13:00 | NUR ---
RN NOTE: DR. HOWE IN TO SEE PATIENT. LABS AND UA REVIEWED. CHEST X-RAY AND HEAD CT TO BE ORDERED. ZYPREXA HELD DUE TO LETHARGY
[2020-06-07 16:00] VITALS: BP 116/73
[2020-06-07] MEDS: ATORVASTATIN 40 MG TABLET PO SCH ×2 (17:16→17:26)
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
[2020-06-07 21:10] VITALS: BP 92/50
[2020-06-07] MEDS: TAMSULOSIN 0.4 MG CAP.SR.24H PO SCH (21:57)
[2020-06-07 22:00] VITALS: BP 97/60
[2020-06-07] MEDS: RIVAROXABAN 10 MG TABLET PO SCH (22:07)
[2020-06-07] MEDS: INSULIN GLARGINE, 100 UNIT/ML CARTRIDGE SQ SCH (22:08)
[2020-06-07] MEDS: DIVALPROEX SODIUM 250 MG TABLET.DR PO SCH (22:22)
[2020-06-08] MEDS: BLOOD SUGAR DIAGNOSTIC 1 EACH STRIP IN SCH ×3 (07:17→16:43)
[2020-06-08 08:00] VITALS: BP 101/56
[2020-06-08] MEDS: DOCUSATE SODIUM 100 MG CAPSULE PO SCH ×2 (08:22→16:37)
[2020-06-08] MEDS: ENSURE ENLIVE CHOC 237 ML CAN PO SCH ×2 (08:23→16:38)
[2020-06-08] MEDS: CYANOCOBALAMIN 500 MCG TABLET PO SCH (08:31)
[2020-06-08] MEDS: FAMOTIDINE (20 MG) 20 MG TABLET PO SCH ×2 (08:31→16:38)
[2020-06-08] MEDS: MULTIVITAMINS,THERAGRAN 1 UDTAB TABLET PO SCH (08:31)
[2020-06-08] MEDS: OLANZAPINE 2.5 MG TABLET PO SCH ×3 (08:31→16:37)
[2020-06-08] MEDS: VIT B CMPLX 3/FA/VIT C/BIOTIN 1 TAB TABLET PO SCH (08:32)
[2020-06-08] MEDS: DILTIAZEM HCL CD 180 MG PO SCH (08:32)
[2020-06-08] MEDS: LISINOPRIL (10MG) 10 MG TABLET PO SCH (08:33)
[2020-06-08] MEDS: ATENOLOL 50 MG TABLET PO SCH ×2 (08:33→16:38)
[2020-06-08] MEDS: Z GUARD REMEDY 2 OZ OINT TP SCH (08:34)
[2020-06-08] MEDS: CLOTRIMAZOLE 1% 15 GM TUBE TP SCH ×2 (08:34→16:50)
[2020-06-08] MEDS: INSULIN REGULAR, HUMAN 100 UNIT/ML 3 ML VIAL SQ PRN (11:43)
[2020-06-08 12:58] LABS: BASOPHILS # (AUTO) 0.1 /CMM (0.0-0.2); BASOPHILS % (AUTO) 0.5 % (0.0-2.0); EOSINOPHILS % (AUTO) 0.7 % (0.0-6.0); HEMATOCRIT 43 % (39-51); HEMOGLOBIN 14.3 g/dL (13.5-17.5); LYMPHOCYTES # (AUTO) 2.3 /CMM (0.8-4.8); LYMPHOCYTES % (AUTO) 17.3 % (20.0-44.0); MEAN CORPUSCULAR HGB CONC 34 g/dl (31.0-36.0); MEAN CORPUSCULAR VOLUME 90 fL (80-96); MONOCYTES # (AUTO) 0.9 /CMM (0.1-1.30); MONOCYTES % (AUTO) 6.8 % (2.0-12.0); NEUTROPHILS # (AUTO) 9.9 /CMM (1.8-8.9); NEUTROPHILS % (AUTO) 74.7 % (43.0-81.0); PLATELET COUNT (AUTO) 212 /CMM (150-450); RED BLOOD CELL COUNT(AUTO) 4.74 MIL/uL (4.5-6.0); WHITE BLOOD COUNT (AUTO) 13.2 K/uL (4.3-11.0)
[2020-06-08 13:46] LABS: CARBON DIOXIDE 37 mmol/L (21-32); CHLORIDE 102 mmol/L (98-107); POTASSIUM 4.3 mmol/L (3.5-5.1); SODIUM SERUM 139 mmol/L (136-145)
[2020-06-08 13:47] LABS: CREATININE 0.9 mg/dL (0.6-1.3); GLUCOSE 154 mg/dL (74-106); UREA NITROGEN, BLOOD 22 mg/dL (7-18)
--- NOTE | 2020-06-08 14:28 | NUR ---
RN NOTE: DR. HOWE NOTIFIED OF URINE CULTURE RESULTS. ORDER FOR CIPRO X 5 DAYS BID.
[2020-06-08 14:41] LABS: ALANINE AMINOTRANSFERASE 22 U/L (12-78); ALKALINE PHOSPHATASE 76 U/L (46-116); ASPARTATE AMINOTRANSFERASE 14 U/L (15-37); BILIRUBIN,TOTAL 0.4 mg/dL (0.2-1.0); MAGNESIUM 2.2 mg/dL (1.8-2.4); PHOSPHORUS 3.8 mg/dL (2.5-4.9); TOTAL PROTEIN, SERUM 7.8 g/dL (6.4-8.2)
[2020-06-08 16:00] VITALS: BP 112/70
[2020-06-08 16:38] VITALS: BP 112/70
[2020-06-08] MEDS: ATORVASTATIN 40 MG TABLET PO SCH (17:13)
--- NOTE | 2020-06-08 17:45 | NUR ---
RN NOTE: PT TO RADIOLOGY FOR CHEST CT
--- NOTE | 2020-06-08 18:21 | NUR ---
RN NOTE: CRITICAL LAB LACTIC ACID CRITICAL HIGH AT 2.5. DR. HOWE NOTIFIED.
--- NOTE | 2020-06-08 18:24 | NUR ---
RN NOTE: DR. HOWE ORDER FOR BLOOD CULTURES TO BE DRAWN
--- NOTE | 2020-06-08 18:32 | NUR ---
RN NOTE: TELEPHONE CALL FROM DR. LUEVANO. ORDER TO TRANSFER PT TO MEDICAL/SURGICAL FLOOR
--- NOTE | 2020-06-08 18:35 | NUR ---
RN NOTE: DR. LUEVANO TO NOTIFY DR. HOWE FOR FURTHER ORDERS.
--- NOTE | 2020-06-08 18:43 | NUR ---
RN NOTE: DR. HOWE ORDER TO TRANSFER PT TO TELEMETRY FLOOR. AWAITING ROOM.
--- NOTE | 2020-06-08 18:52 | NUR ---
RN NOTE: PER DR. LUEVANO, PT TO BE TRANSFERRED ON 14 DAY HOLD.
--- NOTE | 2020-06-08 18:53 | NUR ---
RN NOTE: PER DR. HOWE, STAFF TO NOTIFY FOSTER CARE SOCIAL WORKER PROVIDER.
--- NOTE | 2020-06-08 20:22 | NUR ---
GPS-RN NOTES: BEDSIDE REPORT GIVEN TO CAREN CUNNINGHAM, PATIENT WAS TRANSFERRED TO TELEMETRY UNIT IN ROOM [facility] DUE TO ELEVATED LACTIC ACID. PATIENT IS ALERT AND ORIENTED X1, NO S/S OF ACUTE RESPIRATORY DISTRESS NOTED. V/S TAKEN, STABLE AND RECORDED. ALL BELONGINGS ACCOUNTED FOR AND SIGNED FORM. PATIENT LEFT UNIT VIA WHEELCHAIR AT 2021 ACCOMPANIED BY 2 STAFF. CHARGE NURSE AWARE OF DISCHARGE. Addendum: 06/09/20 at 0127 by JACKI FERGUSON RN LEFT VOICE MESSAGE TO INA FLOR ([phone]) REGARDING PATIENT'S TRANSFER TO ROOM [facility].
[2020-06-08] MEDS ORDERED: CIPROFLOXACIN HCL 250 MG TABLET PO SCH (21:00)
[2020-06-08 21:43] LABS: BILIRUBIN,DIRECT 0.1 mg/dL (0.0-0.2)
== END 2020-06-08 20:05 | disposition short-term general hospital (02) | DRG 885 ==
LOC: ER 00:29 → GPS 01:43
PROVIDERS: ADMIT Psychiatry & Neurology Psychosomatic Medicine; ATTEND Nurse Practitioner Acute Care
DX: F29 Unspecified psychosis not due to a substance or known physiological condition (principal); F01.50 Vascular dementia, unspecified severity, without behavioral disturbance, psychotic disturbance, mood disturbance, and anxiety; G93.41 Metabolic encephalopathy; J18.9 Pneumonia, unspecified organism; E44.0 Moderate protein-calorie malnutrition; E78.5 Hyperlipidemia, unspecified; E11.9 Type 2 diabetes mellitus without complications; I10 Essential (primary) hypertension; I48.91 Unspecified atrial fibrillation; N40.0 Benign prostatic hyperplasia without lower urinary tract symptoms; B35.3 Tinea pedis; F03.90 Unspecified dementia, unspecified severity, without behavioral disturbance, psychotic disturbance, mood disturbance, and anxiety; E88.09 Other disorders of plasma-protein metabolism, not elsewhere classified; M20.41 Other hammer toe(s) (acquired), right foot; M20.42 Other hammer toe(s) (acquired), left foot; K21.9 Gastro-esophageal reflux disease without esophagitis; F25.0 Schizoaffective disorder, bipolar type; E11.40 Type 2 diabetes mellitus with diabetic neuropathy, unspecified; Z20.822 Contact with and (suspected) exposure to COVID-19; Z68.26 Body mass index [BMI] 26.0-26.9, adult; J34.89 Other specified disorders of nose and nasal sinuses; R91.1 Solitary pulmonary nodule; D72.829 Elevated white blood cell count, unspecified; B86 Scabies
CPT/HCPCS: 36415; 70450-TC; 71045-TC; 71250-TC; 72170-TC; 80048-TC; 80053-TC; 80061-TC; 80076-TC; 80164-TC; 81001; 82140-TC; 82248-TC; 82565-TC; 82962-TC; 83605-TC; 83735-TC; 84100-TC; 85025-TC; 87040-TC; 87081-TC; 87086-TC; 92526; 92611-TC; 97116-TC; 97530-TC; C9803; G0480; J1815

== ENCOUNTER 2020-06-08 20:43 | Inpatient (IN) | payer MEDICARE, OTHER ==
[~2020-06-08] VITALS: Ht 188 cm; Wt 99.8 kg
[~2020-06-08 20:43] MED LIST: ATEN50TA PO; ATOR40TA PO; CYAN250014 PO; DILT180C66 PO; DOCU-141 PO; FAMO20TA8 PO; FOLI1CAP7 PO; GABA600T12 PO; INSU100C10 SQ; INSU100V7 SQ; LISI10TA29 PO; MELA3TAB41 PO; MULT-447 PO; QUET50TA PO; RIVA10TA PO; TAMS-12 PO
--- NOTE | 2020-06-08 21:30 | NUR ---
TELE/RN NOTE RECEIVED LACTIC ACID RESULT OF 2.0. RESULT IS TRENDING DOWN. PATIENT TO HAVE LABS DRAWN IN THE AM. AWARE.
[2020-06-08 22:00] VITALS: BP 143/65
[2020-06-08] MEDS ORDERED: ACETAMINOPHEN 325 MG TABLET PO PRN (22:00)
[2020-06-08] MEDS ORDERED: Medication Not On Formulary EA (Insulin Glargine,Hum.rec.anlog (Lantus) 20 UNIT) SQ SCH (22:00)
[2020-06-08] MEDS ORDERED: INSULIN GLARGINE,BASAGLAR 100 UNIT/ML INSULN.PEN SQ SCH (22:00)
[2020-06-08] MEDS ORDERED: MORPHINE SULFATE INJ 2 MG/ML DISP.SYRIN IV PRN (22:00)
[2020-06-08] MEDS ORDERED: CEFTRIAXONE 1 G VIAL ONE (22:10)
[2020-06-08] MEDS: CEFTRIAXONE 1 G in IV D5W 50 ML IV SCH (22:12)
[2020-06-08] MEDS: TAMSULOSIN 0.4 MG CAP.SR.24H PO SCH (22:13)
[2020-06-08] MEDS: GABAPENTIN 300 MG CAPSULE PO SCH (22:18)
--- NOTE | 2020-06-08 23:00 | NUR ---
TELE/RN OPENING NOTE RECEIVED PATIENT FROM GPS NURSE VIA WHEELCHAIR AND ACCOMPANIED TO ROOM 307-1. PATIENT IS ALERT AND ORIENTED X 1-2. ABLE TO MAKE NEEDS KNOWN. NO COMPLAINTS OF PAIN AT THIS TIME. IV INSERTED TO LEFT HAND. CONTINUES ON IV ABX. MULTIPLE SKIN INJURIES NOTED INCLUDING REDNESS TO GROIN/BUTTOCKS AND MULTIPLE SCABS TO BLE. WOUND CONSULT INITIATED. PATIENT IS ON CARDIAC DIET. NO SIGNS OR SYMPTOMS OF AGITATION AT THIS TIME. VS UPON ADMISSION: BP 143/65 HR 96 RR 20 T 98.1 O2 SAT 96% ON ROOM AIR. 1:1 SITTER IN ROOM. CALL LIGHT WITHIN REACH. ASPIRATION, FALL AND SAFETY PRECAUTIONS MAINTAINED. WILL CONTINUE TO MONITOR.
[2020-06-09] VITALS: BP 137/62
[2020-06-09] MEDS: LORAZEPAM INJ 2 MG/ML VIAL IVP PRN ×2 (01:53→21:42)
--- NOTE | 2020-06-09 02:00 | NUR ---
TELE/RN NOTE PATIENT WITH INCREASED AGITATION, SHAKING SIDE RAILS, YELLING AT 1:1 STAFF. MD ARTILLERY SPECIALIST CONTACTED AND NEW ORDER FOR ATIVAN 1MG PRN Q6HRS INITIATED.
--- NOTE | 2020-06-09 06:45 | NUR ---
TELE/RN CLOSING NOTE PATIENT CURRENTLY SLEEPING IN BED. ALERT AND ORIENTED X 1. ABLE TO MAKE NEEDS KNOWN. EASILY REDIRECTED. NO C/O PAIN AT THIS TIME. IV ACCESS TO LEFT HAND INTACT AND PATENT. CONTINUES ON IV AND PO ABX. 1:1 SITTER IN ROOM WITH PATIENT. NO S/SX OF INCREASED BEHAVIORS NOTED. CALL LIGHT WITHIN REACH. ASPIRATION, FALL AND SAFETY PRECAUTIONS MAINTAINED. WILL ENDORSE PLAN OF CARE TO ONCOMING SHIFT.
[2020-06-09 07:35] LABS: BASOPHILS # (AUTO) 0.1 /CMM (0.0-0.2); BASOPHILS % (AUTO) 0.7 % (0.0-2.0); EOSINOPHILS % (AUTO) 1.1 % (0.0-6.0); HEMATOCRIT 39 % (39-51); HEMOGLOBIN 13.2 g/dL (13.5-17.5); LYMPHOCYTES % (AUTO) 20.9 % (20.0-44.0); MEAN CORPUSCULAR HGB CONC 34 g/dl (31.0-36.0); MEAN CORPUSCULAR VOLUME 89 fL (80-96); MONOCYTES # (AUTO) 0.9 /CMM (0.1-1.30); MONOCYTES % (AUTO) 9.8 % (2.0-12.0); NEUTROPHILS # (AUTO) 6.5 /CMM (1.8-8.9); NEUTROPHILS % (AUTO) 67.5 % (43.0-81.0); PLATELET COUNT (AUTO) 174 /CMM (150-450); RED BLOOD CELL COUNT(AUTO) 4.37 MIL/uL (4.5-6.0); WHITE BLOOD COUNT (AUTO) 9.6 K/uL (4.3-11.0)
--- NOTE | 2020-06-09 07:39 | NUR ---
PROCESSING TALC AND BORATE SUPERVISOR OPENING NOTES PT IN BED SLEEPING AT THIS TIME. PT IS A/O X 1-2. PT IS ON ROOM AIR AND IN NO RESPIRATORY DISTRESS. PATIENT CURRENTLY HAS A SINUS RHYTHM. PT HAS BILATERAL LOWER EXTREMITY SCABS AND GROIN/SACRAL REDNESS. PT HAS A SL GAUGE #20 ON L HAND. ALL NEEDS AND CARE ATTENDED WELL. ALL SAFETY MEASURES IN PLACE. BED ALARM ON. PT HAS A SITTER. WILL CONTINUE TO MONITOR THE PT.
[2020-06-09 08:02] LABS: ALBUMIN 2.7 g/dL (3.4-5.0); BILIRUBIN,TOTAL 0.4 mg/dL (0.2-1.0); CALCIUM, SERUM 8.7 mg/dL (8.5-10.1); CREATININE 0.7 mg/dL (0.6-1.3); MAGNESIUM 2.1 mg/dL (1.8-2.4); PHOSPHORUS 3.4 mg/dL (2.5-4.9); TOTAL PROTEIN, SERUM 6.9 g/dL (6.4-8.2)
[2020-06-09 08:10] LABS: THYROID STIMULATING HORMONE 3.127 uIU/mL (0.358-3.74)
[2020-06-09] MEDS: PANTOPRAZOLE 40 MG TABLET.DR PO SCH (08:23)
--- NOTE | 2020-06-09 08:35 | NUR ---
Tank Builder SupervisorBombsight Specialist: JOSIE called the high risk case manager, Xiomy ([phone]), and informed her that this pt was transferred from [facility] and that the pt came from [facility]. JOSIE stated that [facility] does not want the pt to return to their facility unless an alternate SNF placement cannot be secured. JOSIE informed her that the SW spoke to the Public Guardian contact for this pt and they are requesting that the pt return to [facility] SNF as he has been moved around too many times already. JOSIE reaffirmed that [facility] will take the pt back.
--- NOTE | 2020-06-09 08:45 | NUR ---
Public Guardian Contact: JOSIE called Symone ([phone]) [facility] and informed her that the pt was admitted to the medical floor due to an elevated lab result of lactic acid. JOSIE informed her that the SW spoke to the case liner, Xiomy, and informed her that the Public Guardian office is requesting that the pt return to [facility].
[2020-06-09] MEDS: CYANOCOBALAMIN 500 MCG TABLET PO SCH (08:50)
[2020-06-09] MEDS: MULTIVIT W/MINERALS 1 TAB TABLET PO SCH (08:50)
[2020-06-09] MEDS: FAMOTIDINE (20 MG) 20 MG TABLET PO SCH ×2 (08:50→17:07)
[2020-06-09] MEDS: DOCUSATE SODIUM 100 MG CAPSULE PO SCH ×2 (08:50→17:07)
[2020-06-09] MEDS: LISINOPRIL (10MG) 10 MG TABLET PO SCH (08:55)
[2020-06-09] MEDS: VITAMIN B COMP W-C 1 TAB TABLET PO SCH (08:55)
[2020-06-09] MEDS: DILTIAZEM HCL CD 180 MG PO SCH (08:55)
[2020-06-09] MEDS: QUETIAPINE FUMARATE 25 MG TABLET PO SCH ×3 (08:56→17:07)
[2020-06-09 12:00] VITALS: BP 136/75
[2020-06-09] MEDS ORDERED: IV NS 0.9% 1,000 ML IV ONE (13:30)
[2020-06-09] MEDS ORDERED: IOHEXOL-300 100 ML VIAL IV ONE (14:54)
[2020-06-09] MEDS ORDERED: IV NS 0.9% 250 ML IV ONE (14:54)
--- NOTE | 2020-06-09 15:55 | NUR ---
QUILL REAMER NOTES DR JOSEPH ORDERED TO PUT PT ON NONWEIGHTBEARING STATUS ON RIGHT LOWER EXTREMITY FOR 6 WEEKS.
[2020-06-09 16:00] VITALS: BP 126/59
--- NOTE | 2020-06-09 16:43 | NUR ---
APPLICATION INTEGRATION ARCHITECT NOTES PT'S CONSERVATOR CONSENTED FOR THE PT TO HAVE A COMPUTER TOPOGRAPHY SCAN WITH CONTRAST PERFORMED ON HIM TODAY. PT RETURNED TO THE UNIT IN NO RESPIRATORY DISTRESS. AWAITING COMPUTER TOPOGRAPHY SCAN RESULTS. WILL CONTINUE TO MONITOR.
[2020-06-09] MEDS: RIVAROXABAN 10 MG TABLET PO SCH (17:43)
[2020-06-09] MEDS ORDERED: Medication Not On Formulary EA (Melatonin 1 TAB) PO SCH (18:00)
--- NOTE | 2020-06-09 18:31 | NUR ---
GLOBAL MARKETING MANAGER
--- NOTE | 2020-06-09 18:32 | NUR ---
RN NOTES INFORMED ZAYNAB DAVIS NP RESULTS OF CT SCAN OF ABDOMEN AND PELVIS WITH CONTRAST. NO NEW ORDERS MADE AT THIS TIME. WILL CONTINUE TO MONITOR.
--- NOTE | 2020-06-09 18:58 | NUR ---
COMPENSATION ANALYST CLOSING NOTES PT IN BED SLEEPING AT THIS TIME. PT IS A/O X 1-2. PT IS ON ROOM AIR AND IN NO RESPIRATORY DISTRESS. PATIENT CURRENTLY HAS A SINUS RHYTHM. PT HAS BILATERAL LOWER EXTREMITY SCABS AND GROIN/SACRAL REDNESS. PT HAS A SL GAUGE #20 ON L HAND. ALL NEEDS AND CARE ATTENDED WELL. ALL SAFETY MEASURES IN PLACE. BED ALARM ON. PT HAS A SITTER. WILL ENDORSE CONTINUITY OF CARE TO STERILE PROCESSING TECHNICIAN NURSE.
[2020-06-09 20:00] VITALS: BP 99/41
[2020-06-09] MEDS: TAMSULOSIN 0.4 MG CAP.SR.24H PO SCH (21:37)
[2020-06-09] MEDS: GABAPENTIN 300 MG CAPSULE PO SCH (21:37)
[2020-06-09] MEDS: CEFTRIAXONE 1 G in IV D5W 50 ML IV SCH (21:41)
[2020-06-09] MEDS: INSULIN GLARGINE, 100 UNIT/ML CARTRIDGE SQ SCH (22:00)
[2020-06-10] VITALS: BP 92/60
[2020-06-10] MEDS ORDERED: LORAZEPAM INJ 2 MG/ML VIAL IM PRN (01:30)
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
[2020-06-10 04:00] VITALS: BP 96/69
--- NOTE | 2020-06-10 06:21 | NUR ---
SOLID WASTE DISPOSAL MANAGER NOTES AWAKE & RESPONSIVE. NOT IN ANY DISTRESS. NO SOB NOTED. DENIES ANY PAIN OR DISCOMFORT AT THIS TIME. ON TELE SR @ 90. MONITORED ACCORDINGLY. CALL LIGHT WITHIN REACH. BED IN LOWEST POSITION. SR UP X 2 FOR SAFETY. WILL ENDORSE TO NEXT SHIFT.
[2020-06-10 07:01] LABS: BASOPHILS # (AUTO) 0.1 /CMM (0.0-0.2); BASOPHILS % (AUTO) 0.5 % (0.0-2.0); EOSINOPHILS % (AUTO) 0.6 % (0.0-6.0); HEMATOCRIT 40 % (39-51); HEMOGLOBIN 13.5 g/dL (13.5-17.5); LYMPHOCYTES # (AUTO) 1.7 /CMM (0.8-4.8); LYMPHOCYTES % (AUTO) 13.2 % (20.0-44.0); MEAN CORPUSCULAR HGB CONC 34 g/dl (31.0-36.0); MEAN CORPUSCULAR VOLUME 90 fL (80-96); MONOCYTES % (AUTO) 8.2 % (2.0-12.0); NEUTROPHILS # (AUTO) 9.9 /CMM (1.8-8.9); NEUTROPHILS % (AUTO) 77.5 % (43.0-81.0); PLATELET COUNT (AUTO) 176 /CMM (150-450); RED BLOOD CELL COUNT(AUTO) 4.48 MIL/uL (4.5-6.0); WHITE BLOOD COUNT (AUTO) 12.8 K/uL (4.3-11.0)
[2020-06-10 07:16] LABS: CALCIUM, SERUM 8.7 mg/dL (8.5-10.1); CREATININE 0.7 mg/dL (0.6-1.3)
--- NOTE | 2020-06-10 07:30 | NUR ---
CHOIRMASTER OPENING NOTES PATIENT IS UP IN CHAIR, AWAKE AND VERBALLY RESPONSIVE. A/O X 1-2, CONFUSED. BREATHING EVEN AND UNLABORED, TOLERATING ROOM AIR, NO RESPIRATORY DISTRESS. ON TELEMONITORING W/ READING OF SR/ST. PATIENT PULLED PUT IV LINE PER PREVIOUS SHIFT RN REPORT. CURRENTLY W/ SITTER AT BEDSIDE. SAFETY MEASURES IN PLACE. WILL CONTINUE TO MONITOR.
--- NOTE | 2020-06-10 08:41 | NUR ---
WOUND CARE CONSULT: PT PRESENTS WITH DISCOLORATION AND INCONTINENCE ASSOCIATED SKIN DAMAGE TO GLUTEAL CREASE, SCABS TO LOWER LEGS AND LEFT LATERAL ANKLE AND RASH TO GROIN AREAS, PRESENT ON ADMISSION. RECOMMEND DPM CONSULT. DR RODRIGUEZ NOTIFIED OF CONSULT REQUEST. RECOMMENDATIONS MADE FOR SKIN PROTECTION. DISCUSSED WITH NURSING STAFF. PT IS ON ELODIA ISOFLEX LOW AIRLOSS BED. SITTER AT BEDSIDE. PT BECOMES AGITATED AT TIMES. MD IN AGREEMENT WITH PLAN OF CARE.
[2020-06-10] MEDS: LISINOPRIL (10MG) 10 MG TABLET PO SCH (09:00)
[2020-06-10] MEDS: DILTIAZEM HCL CD 180 MG PO SCH (09:00)
[2020-06-10] MEDS ORDERED: Z GUARD REMEDY 2 OZ OINT TP PRN (09:00)
[2020-06-10] MEDS ORDERED: IV NS 0.9% 1,000 ML IV PRN (09:30)
[2020-06-10] MEDS: PANTOPRAZOLE 40 MG TABLET.DR PO SCH (09:36)
[2020-06-10] MEDS: DOCUSATE SODIUM 100 MG CAPSULE PO SCH ×2 (09:36→16:26)
[2020-06-10] MEDS: QUETIAPINE FUMARATE 25 MG TABLET PO SCH ×3 (09:36→16:27)
[2020-06-10] MEDS: CYANOCOBALAMIN 500 MCG TABLET PO SCH (09:36)
[2020-06-10] MEDS: MULTIVIT W/MINERALS 1 TAB TABLET PO SCH (09:36)
[2020-06-10] MEDS: VITAMIN B COMP W-C 1 TAB TABLET PO SCH (09:36)
[2020-06-10] MEDS: FAMOTIDINE (20 MG) 20 MG TABLET PO SCH ×2 (09:36→16:26)
[2020-06-10] MEDS: Z GUARD REMEDY 2 OZ OINT TP SCH (09:39)
[2020-06-10] MEDS: CLOTRIMAZOLE 1% 15 GM TUBE TP SCH ×3 (09:39→17:00)
--- NOTE | 2020-06-10 10:27 | NUR ---
RN NOTES PATIENT SEEN BY OCTAVIO BEAUCHAMPSTRATEGIC BUSINESS DEVELOPMENT NURSE, AND ASSESSED PATIENT'S SKIN ISSUES. PHOTO OF LEFT LATERAL ANKLE SCAB TAKEN TODAY AND PLACED IN CHART; SKIN ISSUE ALREADY NOTED IN RECORD. WILL CONTINUE TO MONITOR.
--- NOTE | 2020-06-10 10:47 | NUR ---
RN NOTES ZAYNAB DAVIS NP, CURRENTLY IN THE UNIT AND SEEN PATIENT; INFORMED ABOUT PATIENT PULLED OUT PERIPHERAL IV LINE AND WAS RESTLESS EARLY IN THE MORNING. ATTEMPTED TO REINSERT IV BUT UNABLE TO RESINSERT DUE TO PATIENT'S RESTLESSNESS. CARBON PAPER INTERLEAFER IS AWARE AND STATED THAT PATIENT PROBABLY DOESN'T NEED IT FOR NOW. WILL CONTINUE TO MONITOR.
[2020-06-10] MEDS ORDERED: LORAZEPAM 1 MG TABLET PO PRN (11:30)
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
[2020-06-10] MEDS: RIVAROXABAN 10 MG TABLET PO SCH (17:49)
--- NOTE | 2020-06-10 18:53 | NUR ---
BLACK OXIDE COATING EQUIPMENT TENDER CLOSING NOTES PATIENT CURRENTLY SLEEPING IN BED W/ SITTER AT BEDSIDE. VERBALLY RESPONSIVE. A/O X 1-2, CONFUSED. BREATHING EVEN AND UNLABORED, TOLERATING ROOM AIR, NO RESPIRATORY DISTRESS. ON TELEMONITORING W/ READING OF SR/ST. NEW IV PLACED AT BEDSIDE ON LEFT HAND #22 GAUGE. PATIENT WAS EVALUATED BY WOUND NURSE, QUYNH, AND RECOMMENDED DPM CONSULT. SAFETY MEASURES IN PLACE. WILL ENDORSE TO SCALER PACKER NURSE FOR HELEN.
[2020-06-10 20:00] VITALS: BP 123/60
--- NOTE | 2020-06-10 20:08 | NUR ---
MS/TELE/RN RECEIVED PATIENT IN ROOM LYING ON BED, AWAKE, ALERT AND ORIENTED TO PERSON ONLY, COMFORTABLE, NO C/O PAIN, NO DISTRESS NOTED, SITTER AT BEDSIDE, WILL MONITOR.
[2020-06-10] MEDS: TAMSULOSIN 0.4 MG CAP.SR.24H PO SCH ×2 (21:42→22:00)
[2020-06-10] MEDS: GABAPENTIN 300 MG CAPSULE PO SCH ×2 (21:42→22:00)
[2020-06-10] MEDS: CEFTRIAXONE 1 G in IV D5W 50 ML IV SCH (21:42)
[2020-06-10] MEDS: INSULIN GLARGINE, 100 UNIT/ML CARTRIDGE SQ SCH (21:45)
--- NOTE | 2020-06-11 02:24 | NUR ---
MS/TELE/RN MADE A CALL TO SAMUEL OF THE NUCLEAR MEDICINE RE: BONE SCAN ORDER, PER SAMUEL, VERIFY TOMORROW WITH DR. ART IF SHE WANTS IT DONE AND LET HIM KNOW.
[2020-06-11 04:00] VITALS: BP 121/64
[2020-06-11 06:31] LABS: BASOPHILS % (AUTO) 0.4 % (0.0-2.0); EOSINOPHILS % (AUTO) 1.1 % (0.0-6.0); HEMATOCRIT 38 % (39-51); HEMOGLOBIN 13.1 g/dL (13.5-17.5); LYMPHOCYTES # (AUTO) 2.1 /CMM (0.8-4.8); LYMPHOCYTES % (AUTO) 20.3 % (20.0-44.0); MEAN CORPUSCULAR HGB CONC 34 g/dl (31.0-36.0); MEAN CORPUSCULAR VOLUME 89 fL (80-96); MONOCYTES # (AUTO) 0.9 /CMM (0.1-1.30); MONOCYTES % (AUTO) 8.4 % (2.0-12.0); NEUTROPHILS # (AUTO) 7.4 /CMM (1.8-8.9); NEUTROPHILS % (AUTO) 69.8 % (43.0-81.0); PLATELET COUNT (AUTO) 165 /CMM (150-450); RED BLOOD CELL COUNT(AUTO) 4.27 MIL/uL (4.5-6.0); WHITE BLOOD COUNT (AUTO) 10.5 K/uL (4.3-11.0)
[2020-06-11 07:04] LABS: CALCIUM, SERUM 8.2 mg/dL (8.5-10.1); CREATININE 0.8 mg/dL (0.6-1.3); MAGNESIUM 1.8 mg/dL (1.8-2.4)
--- NOTE | 2020-06-11 07:06 | NUR ---
MS/TELE/RN PATIENT AWAKE, CALM AND COMFORTABLE, NO DISTRESS NOTED, GOOD SLEEP NOTED DURING THE SHIFT,ALL NEEDS ATTENDED AT THIS TIME, WILL CONTINUE TO MONITOR.
--- NOTE | 2020-06-11 07:35 | NUR ---
ENGINEERING PROGRAMMER OPENING NOTE RECEIVED PATIENT IN BED. A/O X1. ON ROOM AIR, NO SOB NOTED. IN NO APPARENT DISTRESS. IV ACCESS ON L HAND #22 G, INTACT, NS RUNNING @ 75 ML/HR. SAFETY MEASURES MAINTAINED. BED IN LOWEST POSITION, BRAKES LOCKED. SIDE RAILS UP X2. CALL LIGHT WITHIN REACH. WILL CONTINUE PLAN OF CARE.
[2020-06-11] MEDS: FAMOTIDINE (20 MG) 20 MG TABLET PO SCH ×2 (08:40→16:36)
[2020-06-11] MEDS: CYANOCOBALAMIN 500 MCG TABLET PO SCH (08:40)
[2020-06-11] MEDS: VITAMIN B COMP W-C 1 TAB TABLET PO SCH (08:40)
[2020-06-11] MEDS: MULTIVIT W/MINERALS 1 TAB TABLET PO SCH (08:40)
[2020-06-11] MEDS: DOCUSATE SODIUM 100 MG CAPSULE PO SCH ×2 (08:40→16:36)
[2020-06-11] MEDS: QUETIAPINE FUMARATE 25 MG TABLET PO SCH ×3 (08:40→16:36)
[2020-06-11 08:51] VITALS: BP 136/66
[2020-06-11] MEDS: CLOTRIMAZOLE 1% 15 GM TUBE TP SCH ×4 (08:51→16:37)
[2020-06-11] MEDS: LISINOPRIL (10MG) 10 MG TABLET PO SCH (08:51)
[2020-06-11] MEDS: DILTIAZEM HCL CD 180 MG PO SCH (08:51)
[2020-06-11] MEDS: Z GUARD REMEDY 2 OZ OINT TP SCH (08:52)
[2020-06-11] MEDS: PANTOPRAZOLE 40 MG TABLET.DR PO SCH (08:53)
--- NOTE | 2020-06-11 10:36 | NUR ---
TRANSIT DRIVER NOTE PATIENT REMOVED IV ACCESS ON L HAND. REINSERTED A NEW LINE ON R AC #22 G, INTACT AND PATENT.
--- NOTE | 2020-06-11 12:13 | NUR ---
SACK SORTER NOTE CALLED INA FLOR AND NOREEN CABEZAS TO OBTAIN A CONSENT FOR THE NM BONE SCAN WHOLE BODY. NO ONE ANSWERED. LEFT A VOICE MESSAGE. WILL CONTINUE TO FOLLOW UP.
--- NOTE | 2020-06-11 17:48 | NUR ---
PRINTING EQUIPMENT MECHANIC APPRENTICE NOTE PATIENT TRANSFERRED TO GPS VIA [facility]. GAVE REPORT TO OCTAVIO SUNG. VS BP 135/75 DC 79 RR 18 T 97.6 SA02 98% REMOVED IV ACCESS.
== END 2020-06-11 16:36 | DRG 640 ==
LOC: MED 20:43 → TELE 21:07
PROVIDERS: ADMIT Nurse Practitioner Family; ATTEND Nurse Practitioner Family
DX: E86.0 Dehydration (principal); G93.41 Metabolic encephalopathy; E44.0 Moderate protein-calorie malnutrition; M48.54XA Collapsed vertebra, not elsewhere classified, thoracic region, initial encounter for fracture; N39.0 Urinary tract infection, site not specified; E87.2 Acidosis; R91.1 Solitary pulmonary nodule; E11.9 Type 2 diabetes mellitus without complications; F29 Unspecified psychosis not due to a substance or known physiological condition; F25.0 Schizoaffective disorder, bipolar type; F17.210 Nicotine dependence, cigarettes, uncomplicated; F01.50 Vascular dementia, unspecified severity, without behavioral disturbance, psychotic disturbance, mood disturbance, and anxiety; J34.89 Other specified disorders of nose and nasal sinuses; R91.8 Other nonspecific abnormal finding of lung field; I48.91 Unspecified atrial fibrillation; E78.5 Hyperlipidemia, unspecified; I10 Essential (primary) hypertension; K21.9 Gastro-esophageal reflux disease without esophagitis; N40.0 Benign prostatic hyperplasia without lower urinary tract symptoms; B35.3 Tinea pedis; M20.42 Other hammer toe(s) (acquired), left foot; M20.41 Other hammer toe(s) (acquired), right foot; M62.562 Muscle wasting and atrophy, not elsewhere classified, left lower leg; M62.561 Muscle wasting and atrophy, not elsewhere classified, right lower leg; E11.40 Type 2 diabetes mellitus with diabetic neuropathy, unspecified; N20.0 Calculus of kidney; E27.8 Other specified disorders of adrenal gland
CPT/HCPCS: 36415; 71045-TC; 80048-TC; 80053-TC; 82962-TC; 83605-TC; 83735-TC; 84100-TC; 84443-TC; 85025-TC; 87081-TC; 97112-TC; 97116-TC; 97530-TC; G0378; J0696; J2060; J7030; J7050; J7060; Q9967

== ENCOUNTER 2020-06-11 18:59 | Inpatient (IN) | payer MEDICARE, OTHER ==
[~2020-06-11] VITALS: Ht 188 cm; Wt 99.8 kg
[2020-06-11 19:45] VITALS: BP 94/54
[2020-06-11 20:30] VITALS: BP 94/54
[2020-06-11] MEDS ORDERED: MAG HYDROX/AL HYDROX/SIMETH 30 ML UDC PO PRN (20:30)
[2020-06-11] MEDS ORDERED: LORAZEPAM 0.5 MG TABLET PO PRN (20:30)
[2020-06-11] MEDS ORDERED: ACETAMINOPHEN 325 MG TABLET PO PRN (20:30)
[2020-06-11] MEDS ORDERED: MAGNESIUM HYDROXIDE 30 ML UDC PO PRN (20:30)
[2020-06-11] MEDS ORDERED: BLOOD SUGAR DIAGNOSTIC 1 EACH STRIP IN ONE (22:00)
[2020-06-11 22:05] VITALS: BP 105/57
--- NOTE | 2020-06-11 22:10 | NUR ---
GPS PROGRAM PRODUCTION SPECIALIST NOTE: ADMITTED A 74-YR OLD WHITE MALE, FROM [address] [place] [address], STILL ON 5250 HOLD FOR DTO AND GD, HOLD EXPIRES ON 06/16/2020. UPON FACE TO FACE ASSESSMENT, PT IS A & O X 1, EASILY AGITATED, RESTLESS, UNPREDICTABLE, CONFUSED, DISHEVELED, PARANOID, SUSPICIOUS, USES INAPPROPRIATE LANGUAGE TOWARDS PEERS, BUT REDIRECTABLE AT THIS TIME. DENIED SI/HI AT THIS TIME. NON AMBULATORY WITH UNSTEADY GAIT AND NEEDS 1-2 PERSON ASSIST FOR SAFETY, HIGH FALL RISK. PATIENT HAS HX OF SCHIZOPHRENIA. PT'S RIGHTS HANDBOOK AND A GUIDE TO PRESCRIPTION MEDICATIONS GIVEN. IN NO APPARENT DISTRESS NOTED. PT EVAL, WOUND CARE CONSULT ORDERED. INCONTINENT. BELONGINGS WERE INVENTORIED AND CHECKED FOR CONTRABAND. PT. IS UNDER THE PSYCHIATRIC CARE OF DR. LUEVANO, ORDERS OBTAINED, AND UNDER THE MEDICAL CARE OF DR. THAO. PT. REFUSED FLU & PNEUMO VACCINE WHEN OFFERED, MRSA SWAB COLLECTED & WILL BE SENT TO LAB. PT. REFUSED SKIN ASSESSMENT THE FIRST TIME, NOTED TO BE AGITATED. LATER PT. AGREED & SKIN ASSESSMENT DONE, PICTURES TAKEN . DENIES PAIN/DISCOMFORT AT THIS TIME. SAFETY PRECAUTIONS IN PLACE. BED ALARM ON. BED LOCKED AND IN LOWEST POSITION. SIDE RAILS UP X2. WILL CONTINUE TO MONITOR Q15 MINS ROUNDS FOR SAFETY AND BEHAVIOR.
[2020-06-11] MEDS: TEMAZEPAM 7.5 MG CAPSULE PO PRN (22:14)
--- NOTE | 2020-06-11 22:17 | NUR ---
RN NOTE: INSOMNIA PATIENT IS UNABLE TO SLEEP, IRRITABLE, AGITATED, HYPERVERBAL & RESTLESS. PRN RESTORIL 7.5 MG PO ADMINISTERED. WILL REASSESS THE PATIENT FOR EFFECTIVENESS OF MEDICINE.
[2020-06-11] MEDS ORDERED: Z GUARD REMEDY 4 OZ OINT TP PRN (23:30)
[2020-06-12] MEDS ORDERED: DEXTROSE 50%-WATER 50 ML DISP.SYRIN IV PRN (01:30)
[2020-06-12 06:43] LABS: CALCIUM, SERUM 8.5 mg/dL (8.5-10.1); CREATININE 0.9 mg/dL (0.6-1.3)
--- NOTE | 2020-06-12 07:20 | NUR ---
RN NOTE: CALLED CHACHO BUCKLEY AT [phone] & LEFT A VOICEMAIL ABOUT PATIENT'S ADMISSION TO GPS UNIT FROM [facility].
[2020-06-12 08:00] VITALS: BP 103/57
[2020-06-12] MEDS: FAMOTIDINE (20 MG) 20 MG TABLET PO SCH ×2 (08:42→16:09)
[2020-06-12] MEDS: VIT B CMPLX 3/FA/VIT C/BIOTIN 1 TAB TABLET PO SCH (08:42)
[2020-06-12] MEDS: QUETIAPINE FUMARATE 25 MG TABLET PO SCH ×3 (08:42→16:09)
[2020-06-12] MEDS: DOCUSATE SODIUM 100 MG CAPSULE PO SCH ×2 (08:42→16:09)
[2020-06-12] MEDS: MULTIVIT W/MINERALS 1 TAB TABLET PO SCH (08:42)
[2020-06-12] MEDS: Z GUARD REMEDY 2 OZ OINT TP SCH (08:42)
[2020-06-12] MEDS: BLOOD SUGAR DIAGNOSTIC 1 EACH STRIP IN SCH ×4 (08:46→21:28)
[2020-06-12] MEDS: INSULIN REGULAR, HUMAN 100 UNIT/ML 3 ML VIAL SQ PRN ×3 (08:48→21:38)
--- NOTE | 2020-06-12 11:15 | NUR ---
RN NOTE PATIENT IS ON A WHEELCHAIR. ANXIOUS, YELLING, COMBATIVE, HE KEEPS SAYING HE WANTS TO GO HOME AND LEAVE THE FACILITY. CAN'T BE REDIRECTED. REFUSED ATIVAN. TRIED TO PUT HIM ON A NAEEM CHAIR BUT PT WAS CURSING STAFF. WILL CONTINUE TO MONITOR.
--- NOTE | 2020-06-12 11:28 | NUR ---
RN NOTE FOLLOWED UP THE PERSONS TO CONTACT TO GET A CONSENT FOR THE NM WHOLE BODY SCAN. STILL GOT NO ANSWER FROM THEM. LEFT A VOICE MESSAGE.
--- NOTE | 2020-06-12 12:06 | NUR ---
RN NOTE LORAZEPAM 0.5 MG GIVEN. PATIENT IS MORE CALM AND RELAXED. WILL CONTINUE TO MONITOR.
[2020-06-12 16:00] VITALS: BP 113/69
--- NOTE | 2020-06-12 16:31 | NUR ---
RN NOTE BS OF 119. NO INSULIN COVERAGE.
[2020-06-12] MEDS ORDERED: Medication Not On Formulary EA (Melatonin 1 TAB) PO SCH (18:00)
[2020-06-12 20:00] VITALS: BP 111/60
[2020-06-12] MEDS: GABAPENTIN 300 MG CAPSULE PO SCH (21:28)
[2020-06-12] MEDS: TAMSULOSIN 0.4 MG CAP.SR.24H PO SCH (21:28)
[2020-06-12] MEDS: RIVAROXABAN 10 MG TABLET PO SCH (21:36)
[2020-06-12] MEDS: INSULIN GLARGINE, 100 UNIT/ML CARTRIDGE SQ SCH (21:37)
[2020-06-13] MEDS: TEMAZEPAM 7.5 MG CAPSULE PO PRN ×2 (01:55→23:04)
--- NOTE | 2020-06-13 01:55 | NUR ---
GPS-RN NOTES: INSOMNIA PATIENT UNABLE TO SLEEP. ADMINISTERED RESTORIL 7.5MG PO ORDERED. WILL CONTINUE TO MONITOR.
[2020-06-13] MEDS: BLOOD SUGAR DIAGNOSTIC 1 EACH STRIP IN SCH ×4 (07:31→21:11)
[2020-06-13] MEDS: INSULIN REGULAR, HUMAN 100 UNIT/ML 3 ML VIAL SQ PRN ×3 (07:32→21:21)
[2020-06-13 08:00] VITALS: BP 133/70
--- NOTE | 2020-06-13 08:55 | NUR ---
Public Guardian Contact: SW called Symone ([phone]) from [place] [facility] and left a voicemail message stating that the SW would like to discuss the pts placement.
[2020-06-13] MEDS: FAMOTIDINE (20 MG) 20 MG TABLET PO SCH ×2 (09:02→16:36)
[2020-06-13] MEDS: MULTIVIT W/MINERALS 1 TAB TABLET PO SCH (09:02)
[2020-06-13] MEDS: DOCUSATE SODIUM 100 MG CAPSULE PO SCH ×2 (09:02→16:36)
[2020-06-13] MEDS: VIT B CMPLX 3/FA/VIT C/BIOTIN 1 TAB TABLET PO SCH (09:02)
[2020-06-13] MEDS: QUETIAPINE FUMARATE 25 MG TABLET PO SCH ×3 (09:02→16:36)
[2020-06-13] MEDS: Z GUARD REMEDY 2 OZ OINT TP SCH (09:02)
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
--- NOTE | 2020-06-13 13:27 | NUR ---
SNF Referral: JOSIE faxed a referral to [facility] with attn to Dorene to the fax number: [phone].
[2020-06-13 16:00] VITALS: BP 114/66
[2020-06-13 20:00] VITALS: BP 156/94
[2020-06-13] MEDS: TAMSULOSIN 0.4 MG CAP.SR.24H PO SCH (21:11)
[2020-06-13] MEDS: GABAPENTIN 300 MG CAPSULE PO SCH (21:11)
[2020-06-13] MEDS: RIVAROXABAN 10 MG TABLET PO SCH (21:18)
[2020-06-13] MEDS: INSULIN GLARGINE, 100 UNIT/ML CARTRIDGE SQ SCH (21:19)
[2020-06-13 23:13] LABS: BASOPHILS # (AUTO) 0.1 /CMM (0.0-0.2); BASOPHILS % (AUTO) 0.6 % (0.0-2.0); EOSINOPHILS % (AUTO) 1.4 % (0.0-6.0); HEMATOCRIT 41 % (39-51); HEMOGLOBIN 13.6 g/dL (13.5-17.5); LYMPHOCYTES # (AUTO) 2.2 /CMM (0.8-4.8); LYMPHOCYTES % (AUTO) 14.9 % (20.0-44.0); MEAN CORPUSCULAR HGB CONC 34 g/dl (31.0-36.0); MEAN CORPUSCULAR VOLUME 89 fL (80-96); MONOCYTES % (AUTO) 6.5 % (2.0-12.0); NEUTROPHILS # (AUTO) 11.3 /CMM (1.8-8.9); NEUTROPHILS % (AUTO) 76.6 % (43.0-81.0); PLATELET COUNT (AUTO) 193 /CMM (150-450); RED BLOOD CELL COUNT(AUTO) 4.56 MIL/uL (4.5-6.0); WHITE BLOOD COUNT (AUTO) 14.7 K/uL (4.3-11.0)
[2020-06-13 23:24] LABS: CALCIUM, SERUM 9.2 mg/dL (8.5-10.1); CREATININE 0.9 mg/dL (0.6-1.3); POTASSIUM 3.9 mmol/L (3.5-5.1)
--- NOTE | 2020-06-13 23:29 | NUR ---
GPS-RN NOTES: INSOMNIA PATIENT UNABLE TO SLEEP. ADMINISTERED RESTORIL 7.5MG PO ORDERED. WILL CONTINUE TO MONITOR.
[2020-06-14] MEDS: BLOOD SUGAR DIAGNOSTIC 1 EACH STRIP IN SCH ×4 (07:21→22:33)
[2020-06-14] MEDS: INSULIN REGULAR, HUMAN 100 UNIT/ML 3 ML VIAL SQ PRN ×4 (07:22→22:44)
[2020-06-14 08:00] VITALS: BP 102/61
[2020-06-14] MEDS: VIT B CMPLX 3/FA/VIT C/BIOTIN 1 TAB TABLET PO SCH (08:23)
[2020-06-14] MEDS: MULTIVIT W/MINERALS 1 TAB TABLET PO SCH (08:23)
[2020-06-14] MEDS: DOCUSATE SODIUM 100 MG CAPSULE PO SCH ×2 (08:23→17:57)
[2020-06-14] MEDS: FAMOTIDINE (20 MG) 20 MG TABLET PO SCH ×2 (08:23→17:57)
[2020-06-14] MEDS: QUETIAPINE FUMARATE 25 MG TABLET PO SCH ×3 (08:24→17:57)
[2020-06-14] MEDS: Z GUARD REMEDY 2 OZ OINT TP SCH (08:24)
--- NOTE | 2020-06-14 09:00 | NUR ---
RN NOTE- PT WITHDRAWN CALM DIRECTABLE MED COMPLIANT, PO INTAKE FAIR W ASSIST, DENIES ALL, PT DELUSIONAL AND PARANOID
--- NOTE | 2020-06-14 10:07 | NUR ---
WOUND CARE CONSULT: PT IN AN ACTIVITY AT THIS TIME PER RN. REVIEWED CHART, NURSING DOCUMENTATION AND PHOTOS WHICH INDICATE DISCOLORATION TO INNER BUTTOCKS AND DRY WOUND/ESCHAR TO LEFT ANKLE AREA WITH SURROUNDING REDNESS, PRESENT ON ADMISSION. RECOMMENDATIONS MADE FOR SKIN PROTECTION. DPM CONSULT CALLED TO DR RODRIGUEZ. PT IS AMBULATORY PER NURSING STAFF. MD IN AGREEMENT WITH PLAN OF CARE. Addendum: 06/14/20 at 1034 by QUYNH JIMENEZ PT SEEN FOR SKIN ASSESSMENT AND NOTED TO HAVE DISCOLORATION TO INNER/LOWER BUTTOCKS AND LOWER LEG DISCOLORATIONS AND DRY ESCHAR TO LEFT LATERAL ANKLE. PT IS ABLE TO TURN AND REPOSITION HIMSELF IN BED. IN AGREEMENT WITH PLAN OF CARE.
--- NOTE | 2020-06-14 12:59 | NUR ---
SNF Contact: Dorene ([phone]) from [facility] contacted the SW and stated that the pt was accepted to their facility.
--- NOTE | 2020-06-14 14:41 | NUR ---
RN NOTE- BONE SCAN CONSENT SIGNED BY TWO MD. CONTACTED NGUYEN CARDONA. ORDERED BONE SCAN THROUGH [facility]
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
--- NOTE | 2020-06-14 15:30 | NUR ---
PT. ENDORSED TO ME BY PAOLA BOBBY.
[2020-06-14 16:00] VITALS: BP 139/98
[2020-06-14] MEDS: CLOTRIMAZOLE 1% 15 GM TUBE TP SCH (17:50)
--- NOTE | 2020-06-14 19:07 | NUR ---
still have to obtan ua.
[2020-06-14 20:00] VITALS: BP 131/71
[2020-06-14] MEDS: SULFAMETH/TRIMETH 800/160 MG 1 UDTAB TABLET PO SCH (21:27)
[2020-06-14] MEDS: TAMSULOSIN 0.4 MG CAP.SR.24H PO SCH (21:27)
[2020-06-14] MEDS: GABAPENTIN 300 MG CAPSULE PO SCH (21:27)
[2020-06-14] MEDS: RIVAROXABAN 10 MG TABLET PO SCH (21:29)
[2020-06-14] MEDS: INSULIN GLARGINE, 100 UNIT/ML CARTRIDGE SQ SCH (22:43)
--- NOTE | 2020-06-15 00:30 | NUR ---
GPS RN NOTES: PER ABIEL'S ORDER, URINE SAMPLE FOR URINALYSIS COLLECTED FROM PATIENT, AND PICKED UP BY LAB.
[2020-06-15 00:44] LABS: BILIRUBIN,URINE NEGATIVE (NEGATIVE); COLOR,URINE YELLOW (YELLOW); LEUKOCYTE ESTERASE ,URINE NEGATIVE (NEGATIVE); NITRITE, URINE NEGATIVE (NEGATIVE); PH,URINE 5.5 (5.0-8.0); PROTEIN,URINE NEGATIVE (NEGATIVE); UGLUCOSE NEGATIVE (NEGATIVE); UROBILINOGEN,URINE 0.2 EU/dL (0.2)
[2020-06-15 01:00] LABS: BACTERIA,URINE Few /HPF (None Seen); RBC,URINE 0-2 /HPF (0-2); SQUAMOUS EPITHELIAL CELL,UR 0-2 /HPF (None Seen); URINE AMORPHOUS URATE Many /HPF (None Seen); WBC,URINE 0-2 /HPF (0-3)
[2020-06-15 06:26] LABS: BASOPHILS # (AUTO) 0.1 /CMM (0.0-0.2); BASOPHILS % (AUTO) 0.9 % (0.0-2.0); EOSINOPHILS % (AUTO) 1.3 % (0.0-6.0); HEMATOCRIT 37 % (39-51); HEMOGLOBIN 12.8 g/dL (13.5-17.5); LYMPHOCYTES # (AUTO) 1.9 /CMM (0.8-4.8); LYMPHOCYTES % (AUTO) 18.3 % (20.0-44.0); MEAN CORPUSCULAR HGB CONC 34 g/dl (31.0-36.0); MEAN CORPUSCULAR VOLUME 88 fL (80-96); MONOCYTES # (AUTO) 0.8 /CMM (0.1-1.30); MONOCYTES % (AUTO) 7.8 % (2.0-12.0); NEUTROPHILS # (AUTO) 7.6 /CMM (1.8-8.9); NEUTROPHILS % (AUTO) 71.7 % (43.0-81.0); PLATELET COUNT (AUTO) 173 /CMM (150-450); RED BLOOD CELL COUNT(AUTO) 4.25 MIL/uL (4.5-6.0); WHITE BLOOD COUNT (AUTO) 10.6 K/uL (4.3-11.0)
--- NOTE | 2020-06-15 06:39 | NUR ---
GPS RN CLOSING NOTES: PATIENT SLEEPING COMFORTABLY IN BED. SLEPT 9HR THIS SHIFT. NO S/S OF DISTRESS. RESPIRATION EVEN AND UNLABORED WITH EQUAL RISE AND FALL OF THE CHEST ON ROOM AIR. ALL PATIENT CARE NEEDS HAVE BEEN MET ANTICIPATED. WILL CONTINUE TO MONITOR FOR SAFETY, MOOD AND BEHAVIOR AND ENDORSE TO AM SHIFT.
[2020-06-15 06:45] LABS: CALCIUM, SERUM 8.2 mg/dL (8.5-10.1); CREATININE 0.7 mg/dL (0.6-1.3); PHOSPHORUS 3.4 mg/dL (2.5-4.9)
[2020-06-15 08:00] VITALS: BP 124/69
[2020-06-15] MEDS: BLOOD SUGAR DIAGNOSTIC 1 EACH STRIP IN SCH ×4 (08:18→21:26)
[2020-06-15] MEDS: FAMOTIDINE (20 MG) 20 MG TABLET PO SCH ×2 (09:27→18:20)
[2020-06-15] MEDS: VIT B CMPLX 3/FA/VIT C/BIOTIN 1 TAB TABLET PO SCH (09:27)
[2020-06-15] MEDS: MULTIVIT W/MINERALS 1 TAB TABLET PO SCH (09:28)
[2020-06-15] MEDS: SULFAMETH/TRIMETH 800/160 MG 1 UDTAB TABLET PO SCH ×2 (09:28→21:27)
[2020-06-15] MEDS: QUETIAPINE FUMARATE 25 MG TABLET PO SCH ×3 (09:28→18:20)
[2020-06-15] MEDS: DOCUSATE SODIUM 100 MG CAPSULE PO SCH ×2 (09:28→18:19)
[2020-06-15] MEDS: Z GUARD REMEDY 2 OZ OINT TP SCH ×2 (09:39→18:09)
[2020-06-15] MEDS: CLOTRIMAZOLE 1% 15 GM TUBE TP SCH ×2 (09:39→18:10)
--- NOTE | 2020-06-15 13:50 | NUR ---
Public Guardian Contact: JOSIE called Symone ([phone]) from [place] [facility] [facility] and left a voicemail that informed her that the pt is going to be discharged to [facility] the following day.
--- NOTE | 2020-06-15 13:51 | NUR ---
SNF Contact: JOSIE called Dorene ([phone]) from Health system and informed her that the pt is going to be discharged tomorrow.
[2020-06-15 16:00] VITALS: BP 121/62
--- NOTE | 2020-06-15 16:20 | NUR ---
HAD WHOLE BODY BONE SCAN TODAY-AWAITING RESULTS.
--- NOTE | 2020-06-15 18:31 | NUR ---
verbalized being anxious about going home.
--- NOTE | 2020-06-15 18:39 | NUR ---
covid test done and sent to lab.
--- NOTE | 2020-06-15 19:30 | NUR ---
GPS RN NOTE, RECEIVED PATIENT AWAKE AND IN BED, NO S/S OR COMPLAINTS OF PAIN AT THIS TIME. PATIENT IS DISPLAYING NO S/S OF APPARENT DISTRESS AT THIS TIME. PATIENT BREATHING IS UNLABORED WITH EQUAL RISE AND FALL OF THE CHEST. PATIENT IS ALERT AND ORIENTED X 1 - 2 ON ROOM AIR WITH A SPO2 95%. PATIENT IS COMPLIANT WITH MEDICATIONS, VERBALLY ABUSIVE, STRIKING OUT AT TIMES, ANXIOUS AT TIMES, DISORGANIZED, COOPERATIVE, AND NEEDS REDIRECTION. PATIENT DENIES SUICIDAL AND HOMICIDAL IDEATIONS AT THIS TIME. PATIENT ASSISTED WITH TURNING AND REPOSITIONING Q2HR AND PRN FOR COMFORT AND CIRCULATION. PATIENT HAS NO NEEDS AT THIS TIME. PATIENT EDUCATED ON THE USE OF THE CALL COOPER. PATIENT BED SIDE RAILS UP X 2 FOR SAFETY. PATIENT BED IS LOCKED, LOW, WITH BED ALARM ON. WILL CONTINUE TO MONITOR THIS PATIENT Q15 MINUTES WITH THE HELP OF STAFF TO MAINTAIN SAFETY.
[2020-06-15 19:42] VITALS: BP 111/61
--- NOTE | 2020-06-15 21:26 | NUR ---
GPS RN NOTE, PERFORMED ACCU CHECK ON PATIENT WITH A BLOOD SUGAR RESULT OF 146 GAVE 2 UNITS OF REGULAR INSULIN PER SLIDING SCALE AND 15 UNITS OF LANTUS ORDERED. GAVE SNACK AND ORANGE JUICE TO PATIENT WELL. WILL CONTINUE TO MONITOR THIS PATIENT.
[2020-06-15] MEDS: GABAPENTIN 300 MG CAPSULE PO SCH (21:28)
[2020-06-15] MEDS: RIVAROXABAN 10 MG TABLET PO SCH (21:28)
[2020-06-15] MEDS: TAMSULOSIN 0.4 MG CAP.SR.24H PO SCH (21:28)
[2020-06-15] MEDS: INSULIN GLARGINE, 100 UNIT/ML CARTRIDGE SQ SCH (21:46)
[2020-06-15] MEDS: INSULIN REGULAR, HUMAN 100 UNIT/ML 3 ML VIAL SQ PRN (21:47)
[2020-06-16 07:32] LABS: THYROID STIMULATING HORMONE 3.068 uIU/mL (0.358-3.74)
[2020-06-16] MEDS: BLOOD SUGAR DIAGNOSTIC 1 EACH STRIP IN SCH ×3 (07:41→16:15)
[2020-06-16 08:00] VITALS: BP 109/61
[2020-06-16] MEDS: DOCUSATE SODIUM 100 MG CAPSULE PO SCH ×2 (08:05→16:14)
[2020-06-16] MEDS: MULTIVIT W/MINERALS 1 TAB TABLET PO SCH (08:05)
[2020-06-16] MEDS: QUETIAPINE FUMARATE 25 MG TABLET PO SCH ×3 (08:05→16:15)
[2020-06-16] MEDS: FAMOTIDINE (20 MG) 20 MG TABLET PO SCH ×2 (08:05→16:14)
[2020-06-16] MEDS: SULFAMETH/TRIMETH 800/160 MG 1 UDTAB TABLET PO SCH (08:05)
[2020-06-16] MEDS: VIT B CMPLX 3/FA/VIT C/BIOTIN 1 TAB TABLET PO SCH (08:05)
--- NOTE | 2020-06-16 08:56 | NUR ---
Dr. Chacon covering for Dr. Torres gave an order to D/C hold and D/C to [facility] and to follow up with the psych and medical doctors. Dr. Chacon gave an order to continue same meds including prn. Addendum: 06/16/20 at 1623 by LORENZO DOBSON RN Pt. without distress, denies suicidal and homicidal.
[2020-06-16] MEDS: CLOTRIMAZOLE 1% 15 GM TUBE TP SCH ×2 (10:30→16:15)
--- NOTE | 2020-06-16 11:15 | NUR ---
SNF Contact: JOSIE faxed pts covid results to [facility] with attn to Dorene to the fax number: [phone].
--- NOTE | 2020-06-16 12:47 | NUR ---
Dr. Felix Zuniga made aware of the discharge and said to continue same meds including prn. Dr. Washington ordered to repeat CT chest 4 mm lesion in 4 weeks around 07/09/20. Computational Theory Scientist ordered on daily dressing left ankle, paint with betadine and cover with dry dressing.
--- NOTE | 2020-06-16 14:20 | NUR ---
Public Guardian Contact: JOSIE called Symone ([phone]) from [place] [facility] and left a voicemail that informed her that the pt is going to be discharged to [facility] today.
--- NOTE | 2020-06-16 14:35 | NUR ---
Report given to Robyn over the facility.
--- NOTE | 2020-06-16 14:50 | NUR ---
Discharge Note: Pt will be discharged to [facility] located at [address] [place] [address]; . Pt will be discharged via [facility] around 1pm. [facility] [address]. Pts conservator, Symone ([phone]), was informed. Upon discharge, pt presents with a calm affect and appears to be mood congruent. Pt appears to be oriented x1. Pt appears to be disorganized and confused. Pt denies both suicidal and homicidal ideation as well as auditory and visual hallucinations. Pt appears to be disheveled and ungroomed. Pt will be under the care of psychiatrist, Dr. Hwang, located at [address] [facility] [address], [place] [address]; . Pt will also be under the care of oxygen system tester, Dr. García, located at [address] [facility] [address], [place] [address]; . Pts Choice of Vendor and multidisciplinary exit care form were completed and a copy was provided to the pt.
--- NOTE | 2020-06-16 15:59 | NUR ---
Hattie Jenkins ([employer]) made aware of the discharge and ordered for pt. for follow up with Dr. Sanchez (oncologist/food service manager) with the tel # of Dr. Sanchez [phone].
--- NOTE | 2020-06-16 16:15 | NUR ---
Pt. left the unit via ambulance and transported via a gurney. Left without distress, v/s taken: BP 122/64, AK 87, RR 18, temp 98.0 and oxygen sat 97%.
[2020-06-17 08:06] LABS: *SPE A/G RATIO 0.8 (0.7-1.7); *SPE ALBUMIN 2.6 g/dL (2.9-4.4); *SPE ALPHA-1-GLOBULIN 0.3 g/dL (0.0-0.4); *SPE ALPHA-2-GLOBULIN 0.9 g/dL (0.4-1.0); *SPE GLOBULIN, TOTAL 3.4 g/dL (2.2-3.9); *SPE M-SPIKE Not Observed g/dL (Not Observed); *SPEGAMMA GLOBULIN 1.2 g/dL (0.4-1.8); IMMUNOGLOBULIN A, SERUM 677 mg/dL (61-437); IMMUNOGLOBULIN G, SERUM 1038 mg/dL (603-1613); IMMUNOGLOBULIN M, SERUM 39 mg/dL (15-143)
== END 2020-06-16 16:15 | DRG 885 ==
LOC: GPS 19:19
PROVIDERS: ADMIT Psychiatry & Neurology Psychiatry
DX: F25.0 Schizoaffective disorder, bipolar type (principal); G93.41 Metabolic encephalopathy; E44.0 Moderate protein-calorie malnutrition; E87.2 Acidosis; L03.116 Cellulitis of left lower limb; L97.329 Non-pressure chronic ulcer of left ankle with unspecified severity; M48.54XA Collapsed vertebra, not elsewhere classified, thoracic region, initial encounter for fracture; I10 Essential (primary) hypertension; I48.91 Unspecified atrial fibrillation; E78.5 Hyperlipidemia, unspecified; F03.90 Unspecified dementia, unspecified severity, without behavioral disturbance, psychotic disturbance, mood disturbance, and anxiety; E11.40 Type 2 diabetes mellitus with diabetic neuropathy, unspecified; J34.89 Other specified disorders of nose and nasal sinuses; R91.1 Solitary pulmonary nodule; D72.829 Elevated white blood cell count, unspecified; F17.200 Nicotine dependence, unspecified, uncomplicated; F41.9 Anxiety disorder, unspecified; K21.9 Gastro-esophageal reflux disease without esophagitis; Z73.6 Limitation of activities due to disability; R53.1 Weakness; Z91.81 History of falling; F32.9 Major depressive disorder, single episode, unspecified; E11.621 Type 2 diabetes mellitus with foot ulcer; L97.529 Non-pressure chronic ulcer of other part of left foot with unspecified severity; R27.8 Other lack of coordination; B35.3 Tinea pedis; M62.562 Muscle wasting and atrophy, not elsewhere classified, left lower leg; M62.561 Muscle wasting and atrophy, not elsewhere classified, right lower leg; M20.42 Other hammer toe(s) (acquired), left foot; M20.41 Other hammer toe(s) (acquired), right foot; N40.0 Benign prostatic hyperplasia without lower urinary tract symptoms
CPT/HCPCS: 36415; 78306-TC; 80048-TC; 80061-TC; 81001; 82728-TC; 82784; 82962-TC; 83540-TC; 83735-TC; 84100-TC; 84155; 84165; 84443-TC; 85025-TC; 86334; 87081-TC; 97110-TC; 97112-TC; 97116-TC; 97530-TC; A9503; J1815